=== PATIENT | female | born 1945 | race Caucasian/White ===

== ENCOUNTER → 2020-02-10 09:01 | Outpatient (BNVA) | payer MEDICARE, MEDICAID, SELFPAY | PROVIDERS: PCP Internal Medicine; Referring Provider Internal Medicine; Visit Provider Internal Medicine | DX: I51.81 Takotsubo syndrome (principal); I51.89 Other ill-defined heart diseases; R00.1 Bradycardia, unspecified; Z79.899 Other long term (current) drug therapy; I25.2 Old myocardial infarction | CPT/HCPCS: 93005; 99212 ==

== ENCOUNTER 2020-04-22 16:50 | Outpatient (REF) | payer MEDICARE, MEDICAID, SELFPAY ==
--- NOTE | 2020-04-22 16:55 | XR_ITS ---
EXAMINATION: XR KNEE, LEFT CLINICAL INFORMATION: Pain in left knee COMPARISON: 01/26/2019 TECHNIQUE: Four views of the left knee. FINDINGS: No fracture or dislocation. No joint effusion. Moderate medial compartment joint space narrowing and medial marginal osteophytosis. There is superior and inferior patellar osteophytosis. XR/XR knee LT 4V IMPRESSION: Medial and patellofemoral compartment degenerative arthrosis. The findings have progressed from the prior study in 2019. No acute osseous abnormality.
== END 2020-04-22 16:51 | disposition home or self-care (01) ==
LOC: HO.HMGCX 16:50
PROVIDERS: Visit Provider Nurse Practitioner Family
DX: M25.562 Pain in left knee (principal)
CPT/HCPCS: 73564

== ENCOUNTER 2020-06-01 10:52 | Outpatient (REF) | payer MEDICARE, MEDICAID, SELFPAY ==
--- NOTE | ~2020-06-01 | MM_ITS ---
EXAMINATION: MM SCREENING DIGITAL BREAST TOMOSYNTHESIS, BILATERAL CLINICAL INFORMATION: Screening. Asymptomatic. The lifetime risk of breast cancer based on the Tyrer-Cuzick Model is 6%. COMPARISON: Mammography: 05/27/2019, 02/06/2018 TECHNIQUE: Digital breast tomosynthesis is performed in both the craniocaudal and mediolateral oblique views along with computer-aided detection (CAD). Synthesized 2D images are generated from the tomosynthesis. Additional left CC view is provided. FINDINGS: There are scattered areas of fibroglandular density (ACR BI-RADS breast composition Category b). Parenchymal pattern is similar to prior exams. Scattered fibroglandular asymmetries are stable. There is no developing density. No interval mass or architectural abnormality or abnormal calcifications. The axilla are unremarkable. MM/MM tomosynthesis screening BI IMPRESSION: No significant changes from prior exams. ASSESSMENT: BI-RADS 2: Benign RECOMMENDATION: Routine annual mammography screening. This patient's information was entered into a reminder system with a target due date for their next mammogram.
== END 2020-06-01 10:53 | disposition home or self-care (01) ==
LOC: HO.MAMMO 10:52
PROVIDERS: PCP Internal Medicine; Visit Provider Internal Medicine
DX: Z12.31 Encounter for screening mammogram for malignant neoplasm of breast (principal)
CPT/HCPCS: 77063; 77067

== ENCOUNTER 2020-06-09 08:04 | Outpatient (REF) | payer MEDICARE, MEDICAID, SELFPAY ==
--- NOTE | ~2020-06-09 | MM_ITS ---
EXAMINATION: BONE DENSITOMETRY CLINICAL INDICATION: Asymptomatic menopausal state. COMPARISON: Previous BD dated 02/06/2018 and baseline BD dated 01/13/2011. TECHNIQUE: Using a [employer] DXA System (software version: 13.1) manufactured by [employer], dual-energy x-ray absorptiometry was performed of the lumbar spine and left hip. The images are of good technical quality. Summary results are attached. FINDINGS: AP SPINE L1-L4: Current: BMD 1.159 g/cm2, Z-score 0.6, T-score -0.2, normal, 2.3% increase from previous, 6.8% increase from baseline (<5% change is not significant). Prior: BMD 1.133 g/cm2. Baseline: BMD 1.085 g/cm2. LEFT FEMUR, NECK: Current: BMD 0.716 g/cm2, Z-score -1.1, T-score -2.3, osteopenia. Prior: BMD 0.812 g/cm2. Baseline: BMD 0.817 g/cm2. LEFT FEMUR, TOTAL: Current: BMD 0.804 g/cm2, Z-score -0.7, T-score -1.6, osteopenia, 1.5% decrease from previous, 8.4% decrease from baseline (<5% change is not significant). Prior: BMD 0.816 g/cm2. Baseline: BMD 0.878 g/cm2. IDENTIFIED RISK FACTORS: Height loss, history of fracture (adult), menopause. HISTORY OF FRACTURE: Lower extremity, trauma. MEDICATIONS: None listed. MM/XR DEXA axial skeleton IMPRESSION: 1. DIAGNOSIS: Osteopenia based on the lowest T-score value of -2.3 in the femoral neck applying World Health Organization criteria. 2. 10-YEAR FRACTURE RISK PREDICTION, FRAX: Major osteoporotic fracture (clinical spine, forearm, hip or shoulder) 20.4%. Hip fracture 4.9%. 3. Treatment Recommendations: NOF guidelines recommend consideration for treatment in postmenopausal women and men age 50 and older presenting with the following: -A hip or vertebral (clinical or morphometric) fracture. -T-score less than or equal to -2.5 at the femoral neck or spine after appropriate evaluation to exclude secondary causes. -Low bone mass at the hip or spine and a 10-year fracture probability by FRAX of greater than or equal to 3% for hip fracture or greater than or equal to 20% for major osteoporotic fracture based on the [place] adapted WHO algorithm. 4. Other Recommendations: All treatment decisions require clinical judgment and consideration of individual patient factors, including patient preferences, comorbidities, previous drug use, risk factors not captured in the FRAX model (e.g. frailty, falls, vitamin D deficiency, increased bone turnover, interval significant decline in bone density) and possible under or overestimation of fracture risk by FRAX. Additional medical evaluation for secondary cause of low bone mineral density may be appropriate. FUTURE SCAN RECOMMENDATION: People with diagnosed cases of osteoporosis or at high risk for fracture should have regular bone mineral density tests. For patients eligible for Medicare, routine testing is allowed once every 2 years. The testing frequency can be increased to one year for patients who have rapidly progressing disease, those who are receiving or discontinuing medical therapy to restore bone mass, or have additional risk factors.
== END 2020-06-09 08:05 | disposition home or self-care (01) ==
LOC: HO.MAMMO 08:04
PROVIDERS: Visit Provider Internal Medicine
DX: Z13.89 Encounter for screening for other disorder (principal)
CPT/HCPCS: 77080

== ENCOUNTER 2020-06-09 09:15 | Outpatient (REF) | payer MEDICARE, MEDICAID, SELFPAY ==
[2020-06-09 11:55] LABS: Alanine Aminotransferase 10 U/L (0-31); Albumin Level 3.9 g/dL (3.5-5.0); Alkaline Phosphatase 84 U/L (39-117); Anion Gap 11 (12-20); Aspartate Amino Transferase 12 U/L (5-31); Bilirubin Direct 0.7 mg/dL (0.0-0.5); Bilirubin Total 1.8 mg/dL (0.0-1.0); Blood Urea Nitrogen 22 mg/dL (9-16); Calcium 8.9 mg/dL (8.4-10.2); Carbon Dioxide 27 mmol/L (22-29); Chloride 107 mmol/L (96-108); Estimated Glomerular Filt Rate > 60; Glucose Random 83 mg/dL (60-115); Potassium 4.3 mmol/L (3.3-5.1); Sodium 141 mmol/L (135-145); Total Protein 6.8 g/dL (6.5-8.0)
== END 2020-06-09 09:16 | disposition home or self-care (01) ==
LOC: HO.HMGCLDS 09:15
PROVIDERS: PCP Internal Medicine; Visit Provider Internal Medicine
DX: Z13.820 Encounter for screening for osteoporosis (principal); Z78.0 Asymptomatic menopausal state; R17 Unspecified jaundice; I10 Essential (primary) hypertension; E78.9 Disorder of lipoprotein metabolism, unspecified
CPT/HCPCS: 36415; 77080; 80048; 80076

== ENCOUNTER 2021-02-10 06:02 | Outpatient (REF) | payer MEDICARE, MEDICAID, SELFPAY ==
[2021-02-10 11:33] LABS: Basophils Absolute Auto 0.1 X10*3/uL (0.0-0.2); Basophils Percent Auto 0.9 % (0-2); MANUAL DIFF FLAG SCAN; Mean Corpuscular HGB Conc 32.1 g/dl (31.0-35.0); SCAN SMEAR FLAG 1
[2021-02-10 11:35] LABS: Eosinophils Absolute Auto 0.2 X10*3/uL (0.0-0.4); Eosinophils Percent Auto 2.2 % (0-4); Hematocrit 39.2 % (37.0-47.0); Hemoglobin 12.6 g/dl (12.0-16.0); Imm Gran Abs Auto 0.02 X10*3/uL (0.00-0.03); Imm Gran Pct Auto 0.3 % (0.0-0.4); Lymphocytes Absolute Auto 2.1 X10*3/uL (1.2-4.9); Lymphocytes Percent Auto 27.3 % (20-40); Mean Corpuscular Hemoglobin 30.3 pg (27.0-33.0); Mean Corpuscular Volume 94.2 fL (80.0-98.0); Mean Platelet Volume 13.6 fL (9.4-12.3); Monocytes Absolute Auto 0.5 X10*3/uL (0.1-1.2); Monocytes Percent Auto 7.1 % (2-11); Neutrophils Absolute Auto 4.7 x10*3/uL (2.0-8.3); Neutrophils Percent Auto 62.2 % (45-73); Platelet Count 199 X10*3/uL (160-400); Red Blood Count 4.16 X10*6/uL (4.20-5.50); Red Cell Distribution Width 15.2 % (11.0-16.0); White Blood Count 7.6 X10*3/uL (4.8-10.8)
[2021-02-10 11:41] LABS: PLT ABN DIST 1
[2021-02-10 11:54] LABS: SLIDE REVIEW VERIFIED
[2021-02-10 12:16] LABS: Alanine Aminotransferase 10 U/L (0-31); Albumin Level 3.6 g/dL (3.5-5.0); Alkaline Phosphatase 75 U/L (39-117); Anion Gap 11 (12-20); Aspartate Amino Transferase 11 U/L (5-31); Bilirubin Total 1.3 mg/dL (0.0-1.0); Blood Urea Nitrogen 20 mg/dL (9-16); Calcium 8.7 mg/dL (8.4-10.2); Carbon Dioxide 25 mmol/L (22-29); Chloride 109 mmol/L (96-108); Cholesterol 147 mg/dL; Estimated Glomerular Filt Rate > 60; Glucose Fasting 90 mg/dL (60-99); HDL Cholesterol 53 mg/dL; LDL Cholesterol Calculated 79 mg/dl; Potassium 4.2 mmol/L (3.3-5.1); Sodium 141 mmol/L (135-145); Total Protein 6.1 g/dL (6.5-8.0); Triglycerides 76 mg/dL
== END 2021-02-10 06:03 | disposition home or self-care (01) ==
LOC: HO.HMGCLDS 06:02
PROVIDERS: PCP Internal Medicine; Visit Provider Internal Medicine
DX: R10.13 Epigastric pain (principal); E78.9 Disorder of lipoprotein metabolism, unspecified; F41.1 Generalized anxiety disorder; I10 Essential (primary) hypertension
CPT/HCPCS: 36415; 80053; 80061; 85025

== ENCOUNTER → 2021-02-11 09:42 | Outpatient (REF) | payer MEDICARE, MEDICAID, SELFPAY ==
--- NOTE | 2021-02-11 09:46 | CA_ITS ---
Transthoracic Echocardiogram Patient (Last, First, Middle): Flxe Cuevas, Gender: Female Date of : 1945 Age: 75 Procedure Date: 02/11/2021 Procedure Type: Transthoracic Echocardiogram Location: OP Height: 162.56 cm Weight: 88.45 kg BSA: 1.94 m2 Heart Rate: bpm BP: 138 / 80 mmHg Financial Auditor: DSLevy Referring MD: Jey Roy MD Symptoms: I51.81 - Takotsubo syndrome Study Quality: Fair ECG Rhythm: Sinus Conclusions: - The left ventricular systolic function is normal. The calculated ejection fraction is 55% by biplane method. - E/E prime ratio is >15, consistent with elevated filling pressures. Evidence suggests grade I (mild) diastolic dysfunction. - There is mild mitral valve regurgitation. Findings Left Ventricle Normal left ventricular cavity size. There is normal left ventricular wall thickness. The left ventricular systolic function is normal. The calculated ejection fraction is 55% by biplane method. E/E prime ratio is >15, consistent with elevated filling pressures. Evidence suggests grade I (mild) diastolic dysfunction. Right Ventricle Normal right ventricular cavity size and systolic function. Atria Both atria are normal in size. Aortic Valve There is a normal trileaflet aortic valve. There is no aortic valve stenosis. There is trace (trivial) aortic valve regurgitation. Mitral Valve The mitral valve appears normal. There is mild mitral valve regurgitation. There is no mitral valve stenosis. Pulmonic Valve The pulmonic valve was not well visualized. Tricuspid Valve Normal tricuspid valve structure. There is trace tricuspid valve regurgitation. The pulmonary artery systolic pressure is normal. Great Vessels There is mild dilatation of the ascending aorta measuring 3.80 cm. Venous The inferior vena cava is mildly dilated. Pericardium/Pleural There is no evidence of pericardial effusion. Prior Study Comparison No significant change compared to prior study dated: 09/03/2018. Measurements 2D Linear Measurements IVSd: 0.98 0.6-0.9/0.6-1.0 cm LVIDd: 4.64 3.9-5.3/4.2-5.9 cm LVIDd Index: 2.39 2.4-3.2/2.2-3.1 cm/m2 LVIDs: 3.59 2.0-3.6 cm LVPWd: 1.33 0.7-1.1 cm LA Diam: 4.10 2.7-3.8/3.0-4.0 cm LAIDs Index: 2.11 1.5-2.3 cm/m2 LV Mass: 245.54 67-162/88-224 g LV Mass Index: 126.57 43-95/49-115 g/m2 LVOT Diam: 2.30 3.0+(-)1.3 cm 2D Systolic Function EF 4C: 53.70 >55% EF 2C: 53.30 >55% EF BiP: 54.60 >55% Mitral Valve MV Pk E: 1.04 MV PK A: 0.88 MV Decel Time: 235.00 E/A: 1.20 E'Lateral: 6.09 E'Medial: 6.64 E/E' Med: 15.70 E/E' Lat: 17.10 PHT: 69.00 MVA PHT: 3.19 Decel Sioux: 4.42 Aortic Valve AoV Pk Trevor: 1.24 AoV Pk Grad: 6.00 AI Pk Trevor: 3.61 AI Sioux: 1.93 LVOT LVOT Pk Trevor: 0.95 LVOT Mn Trevor: 0.68 LVOT VTI: 0.23 LVOT Pk Grad: 4.00 LVOT Mn Grad: 2.00 LVOT Diam: 2.30 LVOT Area: 4.15 Diastolic Function MV Pk E: 1.04 MV Pk A: 0.88 E/A: 1.20 E'Medial: 6.64 E/E' Med: 15.70 E' Laterial: 6.09 E/E' Lat: 17.10 Right Ventricle TAPSE (mm): 2.26 Tricuspid Valve TR Pk Trevor: 2.24 TR Pk Grad: 20.00 RA Press: 3.00 RVSP: 23.00 Great Vessels Aorta Ao Asc: 3.80 2.1-3.4 cm Updated in Other Vendor System with Status of Final Jey Roy MD electronically signed on 02/12/2021 2:57:52 PM with status of Final
== END ==
LOC: HO.CARD 09:42
PROVIDERS: PCP Internal Medicine; Visit Provider Internal Medicine
DX: I25.10 Atherosclerotic heart disease of native coronary artery without angina pectoris (principal); I51.81 Takotsubo syndrome
CPT/HCPCS: 93306

== ENCOUNTER → 2021-02-15 08:22 | Outpatient (BNVA) | payer MEDICARE, MEDICAID, SELFPAY | PROVIDERS: PCP Internal Medicine; Referring Provider Internal Medicine; Visit Provider Internal Medicine | DX: I51.81 Takotsubo syndrome (principal); I51.89 Other ill-defined heart diseases; I49.3 Ventricular premature depolarization | CPT/HCPCS: 93005; 99212 ==

== ENCOUNTER 2021-07-26 08:07 | Outpatient (REF) | payer MEDICARE, MEDICAID, SELFPAY ==
--- NOTE | ~2021-07-26 | MM_ITS ---
EXAMINATION: MM SCREENING DIGITAL BREAST TOMOSYNTHESIS, BILATERAL CLINICAL INFORMATION: Screening. Asymptomatic. The lifetime risk of breast cancer based on the Tyrer-Cuzick Model is 6%. COMPARISON: Mammography: 06/01/2020, 05/27/2019, 02/06/2018 TECHNIQUE: Digital breast tomosynthesis is performed in both the craniocaudal and mediolateral oblique views along with computer-aided detection (CAD). Synthesized 2D images are generated from the tomosynthesis. FINDINGS: There are scattered areas of fibroglandular density (ACR BI-RADS breast composition Category b). There are no significant masses, abnormal calcifications, or other abnormalities. Parenchymal pattern is similar to prior studies. The axilla and skin contours are unremarkable. MM/MM tomosynthesis screening BI IMPRESSION: No mammographic evidence of malignancy. ASSESSMENT: BI-RADS 1: Negative RECOMMENDATION: Routine annual mammography screening. This patient's information was entered into a reminder system with a target due date for their next mammogram.
== END 2021-07-26 08:08 | disposition home or self-care (01) ==
LOC: HO.MAMMO 08:07
PROVIDERS: PCP Internal Medicine; Visit Provider Internal Medicine
DX: Z12.31 Encounter for screening mammogram for malignant neoplasm of breast (principal)
CPT/HCPCS: 77063; 77067

== ENCOUNTER → 2022-03-21 12:44 | Outpatient (BNVA) | payer MEDICARE, MEDICAID, SELFPAY | PROVIDERS: PCP Internal Medicine; Referring Provider Internal Medicine; Visit Provider Internal Medicine | DX: I51.81 Takotsubo syndrome (principal); I51.89 Other ill-defined heart diseases; I10 Essential (primary) hypertension | CPT/HCPCS: 93005; 99212 ==

== ENCOUNTER 2022-07-13 10:45 | Outpatient (REF) | payer OTHER, MEDICAID, SELFPAY ==
--- NOTE | ~2022-07-13 | XR_ITS ---
EXAMINATION: XR chest 2V, XR ribs RT 2V CLINICAL INFORMATION: Reason for Exam W19.XXXA - Unspecified fall, initial encounter COMPARISON: Chest radiograph 01/26/2019 TECHNIQUE: 3 views of the Right ribs. 2 view of the chest. FINDINGS: Possible subtle minimally displaced right anterior seventh rib fracture. Few streaky left basilar airspace opacities favoring atelectasis. No pneumothorax. Trace bilateral pleural effusions. Unchanged cardiomediastinal silhouette. XR/XR chest 2V IMPRESSION: 1. Possible subtle minimally displaced right anterior seventh rib fracture. No pneumothorax. 2. Trace bilateral pleural effusions. 3. Few streaky left basilar airspace opacities favoring atelectasis.
--- NOTE | ~2022-07-13 | XR_ITS ---
EXAMINATION: XR chest 2V, XR ribs RT 2V CLINICAL INFORMATION: Reason for Exam W19.XXXA - Unspecified fall, initial encounter COMPARISON: Chest radiograph 01/26/2019 TECHNIQUE: 3 views of the Right ribs. 2 view of the chest. FINDINGS: Possible subtle minimally displaced right anterior seventh rib fracture. Few streaky left basilar airspace opacities favoring atelectasis. No pneumothorax. Trace bilateral pleural effusions. Unchanged cardiomediastinal silhouette. XR/XR ribs RT 2V IMPRESSION: 1. Possible subtle minimally displaced right anterior seventh rib fracture. No pneumothorax. 2. Trace bilateral pleural effusions. 3. Few streaky left basilar airspace opacities favoring atelectasis.
== END 2022-07-13 10:46 | disposition home or self-care (01) ==
LOC: HO.HMGCX 10:45
PROVIDERS: PCP Internal Medicine; Visit Provider Internal Medicine
DX: R07.81 Pleurodynia (principal); Z91.81 History of falling
CPT/HCPCS: 71046; 71100

== ENCOUNTER 2022-08-01 08:05 | Outpatient (REF) | payer OTHER, MEDICAID, SELFPAY ==
--- NOTE | ~2022-08-01 | MM_ITS ---
EXAMINATION: MM SCREENING DIGITAL BREAST TOMOSYNTHESIS, BILATERAL CLINICAL INFORMATION: Screening. Asymptomatic. The lifetime risk of breast cancer based on the Tyrer-Cuzick Model is 6%. COMPARISON: Mammography: 07/26/2021, 06/01/2020, 05/27/2019, 02/06/2018, 01/05/2017 TECHNIQUE: Digital breast tomosynthesis is performed in both the craniocaudal and mediolateral oblique views along with computer-aided detection (CAD). Synthesized 2D images are generated from the tomosynthesis. FINDINGS: There are scattered areas of fibroglandular density (ACR BI-RADS breast composition Category b). There are no significant masses, abnormal calcifications, or other abnormalities. No architectural abnormality or developing density or significant change from prior studies. There are some scattered minor asymmetries similar to prior exams. The axilla and skin contours are unremarkable. No significant changes. MM/MM tomosynthesis screening BI IMPRESSION: No mammographic evidence of malignancy. ASSESSMENT: BI-RADS 2: Benign RECOMMENDATION: Routine annual mammography screening. This patient's information was entered into a reminder system with a target due date for their next mammogram.
== END 2022-08-01 08:06 | disposition home or self-care (01) ==
LOC: HO.MAMMO 08:05
PROVIDERS: PCP Internal Medicine; Visit Provider Internal Medicine
DX: Z12.31 Encounter for screening mammogram for malignant neoplasm of breast (principal)
CPT/HCPCS: 77063; 77067

== ENCOUNTER 2023-04-10 08:34 | Outpatient (AMB) | payer OTHER, MEDICAID, SELFPAY ==
[2023-04-10 08:48] VITALS: BP 132/80; PULSE 59; BMI 35.3
--- NOTE | 2023-04-10 08:48 | MHC.OFFVIS ---
Intake Vital Signs 04/10/23 08:48 Height 5 ft 2 in Weight 193 lb 1.999 oz BMI 35.3 BP 132/80 Blood Pressure Location Lt brachial Position Sitting Pulse 59 Pulse Source Monitor Intake Visit Reasons: f/u Special Agent Required: No Traffic Observer: Traffic Observer Present Accompanied by: Daughter Allergies lisinopril [LISINOPRIL] Allergy (Unknown, Verified 04/10/23 08:51) Cough Sulfa (Sulfonamide Antibiotics) Allergy (Unknown, Verified 04/10/23 08:51) Unknown propoxyphene [From Darvocet-N] Allergy (Verified 04/10/23 08:51) tachycardia cephalexin [Keflex] Adverse Reaction (Unknown, Verified 04/10/23 08:51) Nausea and Vomiting Medication List - Last Reconciled 04/10/23 by SHANTANU NassarC aspirin 81 mg PO DAILY atorvastatin 20 mg PO DAILY carvedilol 6.25 mg PO BID losartan 25 mg PO DAILY omeprazole 20 mg PO BID HPI f/u HPI Details Flex is a 77-year-old female past medical history of hypertension, hyperlipidemia, stress-induced cardiomyopathy who presents for follow-up. Today she reports she has been doing well since her last visit here on 03/21/2022. She denies any concerning symptoms. No chest discomfort at rest or with activity, no shortness of breath, palpitations, presyncope, syncope, PND, orthopnea or edema. 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 She does have issues with bilateral knee discomfort. She takes all her meds as directed. Her daughter is present. ON LICENSE OF [facility] Medical History Sinus bradycardia Diastolic dysfunction Stress-induced cardiomyopathy Dyspepsia Hypertension, essential Lipid disorder Angina pectoris Varicose veins of anus or rectum Ankle fracture, right Upper GI bleed Surgical History History of cardiac catheterization (~01/2015) Displaced comminuted fracture of shaft of right tibia, subsequent encounter for open fracture type IIIA, IIIB, or IIIC with routine healing (2009) Hx of arthroscopy of right knee (2009) Family History Father Diabetes HTN (hypertension) Mother Diabetes HTN (hypertension) Unknown Diabetes HTN (hypertension) Brother Lymphoma Social History Patient Tobacco Use Status: Never used Tobacco Review of Systems Const All systems reviewed & are unremarkable except as noted in HPI and below ENT Denies dizziness Card Denies chest pain, Denies chest pain at rest, Denies chest pain with activity, Denies rapid heart rate, Denies pedal edema, Denies edema, Denies leg edema, Denies lightheadedness, Denies palpitations, Denies dyspnea, Denies dyspnea on exertion and Denies orthopnea Resp Denies cough, Denies dyspnea and Denies dyspnea on exertion GI Denies hematochezia and Denies change in stool character Musc Denies abnormal gait, Denies limited range of motion, Denies muscle cramps, Denies muscle weakness, Denies numbness, Denies radiating pain into limb, Denies stiffness and Denies tingling Neuro Denies abnormal gait, Denies dizziness, Denies numbness and Denies tingling Endo Denies palpitations Physical Exam Vital Signs: Last Vital Signs BP 132/80 04/10/23 08:48 BMI result Body Mass Index 35.3 Const General: cooperative, healthy appearing, comfortable and no acute distress Orientation/consciousness: patient oriented x3 Neck Neck: Yes normal visual inspection Resp Effort & Inspection: normal respiratory effort Auscultation: clear to auscultation bilaterally, no crackles, no rales, no rhonchi and no wheezes Cardio Jugular venous distension: no JVD Rate: regular rate Rhythm: regular rhythm Heart sounds: S1 normal heart sound present, S2 normal heart sound present, no murmurs and no rubs Skin General skin exam: no rashes or lesions noted Neuro General: patient oriented x3 Extrem General: Yes normal to inspection and No no pedal edema Psych Appearance: grossly normal Mental Status: mental status grossly normal Speech and movement: Normal speech and movement present Office Procedures EKG Details: Today, read by me, sinus bradycardia with PACs, left axis deviation, LVH with QRS widening, QTC 441 millisecond, rate 59 [id number], Complete Assessment & Plan Assessment & Plan (1) Stress-induced cardiomyopathy: Code(s): I51.81 - Takotsubo syndrome Plan: History of stress-induced cardiomyopathy. She has been maintained on carvedilol and losartan for neurohormonal modulation. Prior cardiac catheterization 2014 showed no significant CAD. Last echocardiogram done 02/11/2021 showed EF 55%, grade 1 diastolic dysfunction, mild MR, echo was no change from 06/2018. She has no clinical signs of heart failure on examination. No reports of anginal sounding symptoms. Continue on current meds without change. Will send refills for her carvedilol, losartan and atorvastatin. Will update lab work, orders placed. Will check echo prior to her next visit in 1 year. Cardiology follow-up in 1 year, sooner if needed. (2) Hypertension, essential: Code(s): I10 - Essential (primary) hypertension Plan: Well controlled at present time. No med changes made Plan Time spent on chart review, documentation, interview and assessment Orders: Orders Lipid Panel Today E78.9 - Disorder of lipoprotein metabolism, unspecified CA echo transthoracic complete 50 Weeks I51.81 - Takotsubo syndrome Complete Blood Count Auto Diff Today I51.81 - Takotsubo syndrome, K21.9 - Gastro-esophageal reflux disease without esophagitis Comprehensive Met. Panel Today I10 - Essential (primary) hypertension, I51.81 - Takotsubo syndrome Medications: Refilled atorvastatin 20 mg PO DAILY 90 tabs 3RF carvedilol 6.25 mg PO BID 180 tabs 3RF I51.81 - Takotsubo syndrome losartan 25 mg PO DAILY 90 tabs 3RF I51.81 - Takotsubo syndrome Coding Level of Care Code Est Pt Level 3 (79330) Diagnoses Stress-induced cardiomyopathy I51.81 Hypertension, essential I10 CPT Codes EKG - CPT: 35020-Ydiwarprhbzsitipi, Complete ([id number]) Time Spent (min) 24
== END 2023-04-10 09:15 | disposition home or self-care (01) ==
PROVIDERS: PCP Internal Medicine; Visit Provider Nurse Practitioner Family
DX: I51.81 Takotsubo syndrome (principal); I10 Essential (primary) hypertension
CPT/HCPCS: 93010; 99213

== ENCOUNTER → 2023-04-10 08:34 | Outpatient (BNVA) | payer OTHER, MEDICAID, SELFPAY | PROVIDERS: PCP Internal Medicine; Visit Provider Nurse Practitioner Family | DX: I51.81 Takotsubo syndrome (principal); I10 Essential (primary) hypertension | CPT/HCPCS: 93005; 99212 ==

== ENCOUNTER 2023-04-21 07:29 | Outpatient (REF) | payer OTHER, SELFPAY ==
[2023-04-21 11:40] LABS: MANUAL DIFF FLAG NO
[2023-04-21 11:58] LABS: Basophils Absolute Auto 0.1 X10*3/uL (0.0-0.2); Basophils Percent Auto 1.6 % (0-2); Eosinophils Absolute Auto 0.1 X10*3/uL (0.0-0.4); Eosinophils Percent Auto 2.4 % (0-4); Hematocrit 43.7 % (37.0-47.0); Hemoglobin 14.2 g/dl (12.0-16.0); Imm Gran Abs Auto 0.01 X10*3/uL (0.00-0.03); Imm Gran Pct Auto 0.2 % (0.0-0.4); Lymphocytes Percent Auto 35.4 % (20-40); Mean Corpuscular HGB Conc 32.5 g/dl (31.0-35.0); Mean Corpuscular Hemoglobin 29.8 pg (27.0-33.0); Mean Corpuscular Volume 91.6 fL (80.0-98.0); Mean Platelet Volume 13.3 fL (9.4-12.3); Monocytes Absolute Auto 0.4 X10*3/uL (0.1-1.2); Monocytes Percent Auto 7.6 % (2-11); Neutrophils Absolute Auto 3.1 x10*3/uL (2.0-8.3); Neutrophils Percent Auto 52.8 % (45-73); Platelet Count 220 X10*3/uL (160-400); Red Blood Count 4.77 X10*6/uL (4.20-5.50); Red Cell Distribution Width 12.8 % (11.0-16.0); White Blood Count 5.8 X10*3/uL (4.8-10.8)
[2023-04-21 12:19] LABS: Alanine Aminotransferase 9 U/L (0-31); Albumin Level 3.8 g/dL (3.5-5.0); Alkaline Phosphatase 83 U/L (39-117); Anion Gap 11 (12-20); Aspartate Amino Transferase 14 U/L (5-31); Bilirubin Total 1.7 mg/dL (0.0-1.0); Blood Urea Nitrogen 13 mg/dL (9-16); Calcium 9.2 mg/dL (8.4-10.2); Carbon Dioxide 25 mmol/L (22-29); Chloride 109 mmol/L (96-108); Cholesterol 147 mg/dL (<200); Estimated Glomerular Filt Rate > 60; Glucose Random 94 mg/dL (60-115); HDL Cholesterol 59 mg/dL (>40); LDL Cholesterol Calculated 73 mg/dL (<100); Potassium 3.6 mmol/L (3.3-5.1); Sodium 141 mmol/L (135-145); Triglycerides 79 mg/dL (<150)
== END 2023-04-21 07:30 | disposition home or self-care (01) ==
LOC: HO.HMGCLDS 07:29
PROVIDERS: PCP Internal Medicine; Visit Provider Nurse Practitioner Family
DX: E78.9 Disorder of lipoprotein metabolism, unspecified (principal); I51.81 Takotsubo syndrome; I10 Essential (primary) hypertension; K21.9 Gastro-esophageal reflux disease without esophagitis
CPT/HCPCS: 36415; 80053; 80061; 85025

== ENCOUNTER 2023-06-01 12:39 | Outpatient (AMB) | payer OTHER, SELFPAY ==
[2023-06-01 13:23] VITALS: BP 140/82; PULSE 66; TEMP 36.6; O2SAT 99; BMI 35.3
--- NOTE | 2023-06-01 13:23 | AM.OFFWIN_ITS ---
Intake Vital Signs 06/01/23 13:23 Height 5 ft 2 in Weight 193 lb BMI 35.3 BP 140/82 H Blood Pressure Location Lt brachial Position Sitting Pulse 66 Pulse Source Pulse Oximeter Temp 97.9 F Temp Source Oral Pulse Oximetry (%) 99 Oxygen Delivery Method Room Air Intake Visit Reasons: EP sciatica [id number] Intake Note: pt ia here for sciatica serve pain, for 1 week Patient Tobacco Use Status: Never used Tobacco Allergies lisinopril [LISINOPRIL] Allergy (Unknown, Verified 06/01/23 13:24) Cough Sulfa (Sulfonamide Antibiotics) Allergy (Unknown, Verified 06/01/23 13:24) Unknown propoxyphene [From Darvocet-N] Allergy (Verified 06/01/23 13:24) tachycardia cephalexin [Keflex] Adverse Reaction (Unknown, Verified 06/01/23 13:24) Nausea and Vomiting Do you need a note to return to daycare/school/sports/work: No HPI HPI Comments History of Present Illness Details 77 y/o female patient who presents to al ana in clinic with c/o left sided Sciatica nerve x 1 week. Pt describes the pain as sharp radiating down to her foot. Pain is aggravated by walking or standing. Pt has h/o Bilateral knees Osteoarthritis and has an appointment with [facility] Orthopedics. [facility] Medical History Sinus bradycardia Diastolic dysfunction Stress-induced cardiomyopathy Dyspepsia Hypertension, essential Lipid disorder Angina pectoris Varicose veins of anus or rectum Ankle fracture, right Upper GI bleed Surgical History History of cardiac catheterization (~01/2015) Displaced comminuted fracture of shaft of right tibia, subsequent encounter for open fracture type IIIA, IIIB, or IIIC with routine healing (2009) Hx of arthroscopy of right knee (2009) Family History Father Diabetes HTN (hypertension) Mother Diabetes HTN (hypertension) Unknown Diabetes HTN (hypertension) Brother Lymphoma Social History Patient Tobacco Use Status: Never used Tobacco Review of Systems Const All systems reviewed & are unremarkable except as noted in HPI and below Physical Exam Vital Signs: Last Vital Signs Temp 97.9 F 06/01/23 13:23 Pulse 66 06/01/23 13:23 BP 140/82 H 06/01/23 13:23 Pulse Ox 99 06/01/23 13:23 Oxygen Delivery Method Room Air 06/01/23 13:23 BMI result Body Mass Index 35.3 Const General: no acute distress; No comfortable Orientation/consciousness: patient oriented x3 General: Yes no CVA tenderness Back/Spine/Pelvis Back: no CVA tenderness Thoracic/Lumbar Spine: lumbar spinal tenderness (lumbar spasm) at L5 Pelvis: sciatic notch tenderness Neuro General: patient oriented x3 and gait normal Motor exam (neuro): 5/5 motor strength present throughout Assessment & Plan Assessment & Plan (1) Left sciatic nerve pain: Code(s): M54.32 - Sciatica, left side Plan: - F/U with PCP - F/U with Ortho - Take medicine as directed. Medications: New prednisone 20 mg PO DAILY 5 days 5 tabs 0RF M54.32 - Sciatica, left side lidocaine 4% 1 patch topical BID PRN 30 ea 0RF pain M54.32 - Sciatica, left side ibuprofen 600 mg PO Q6H PRN 20 tabs 0RF pain M54.32 - Sciatica, left side cyclobenzaprine 5 mg PO BEDTIME 10 tabs 0RF M54.32 - Sciatica, left side Coding Level of Care Code Est Pt Level 3 (30623) Diagnoses Left sciatic nerve pain M54.32 Time Spent (min) 15
== END 2023-06-01 14:50 | disposition home or self-care (01) ==
PROVIDERS: PCP Internal Medicine; Visit Provider Nurse Practitioner Family
DX: M54.32 Sciatica, left side (principal)
CPT/HCPCS: 99213

== ENCOUNTER 2023-08-03 07:36 | Outpatient (REF) | payer OTHER, SELFPAY ==
--- NOTE | ~2023-08-03 | MM_ITS ---
EXAMINATION: MM SCREENING DIGITAL BREAST TOMOSYNTHESIS, BILATERAL CLINICAL INFORMATION: Screening. Asymptomatic. COMPARISON: Mammography: 07/26/2021, 06/01/2020, 05/27/2019, 02/06/2018, 01/05/2017. TECHNIQUE: Digital breast tomosynthesis is performed in both the craniocaudal and mediolateral oblique views along with computer-aided detection (CAD). Synthesized 2D images are generated from the tomosynthesis. Added bilateral MLO views were provided. FINDINGS: There are scattered areas of fibroglandular density (ACR BI-RADS breast composition Category b). There are bilateral vascular calcifications. There are a few scattered benign type calcifications. There are no suspicious masses, suspicious grouped calcifications, or areas of architectural distortion in either breast. The parenchymal pattern is stable from prior exams. No axillary or skin abnormalities. MM/MM tomosynthesis screening BI IMPRESSION: No mammographic evidence of malignancy. ASSESSMENT: BI-RADS BI-RADS 2 - Benign Findings RECOMMENDATION: Routine annual mammography screening. 1 year F/U This examination should not preclude the clinical evaluation of a suspicious palpable abnormality. This patient's information was entered into a reminder system with a target due date for their next mammogram.
== END 2023-08-03 07:37 | disposition home or self-care (01) ==
LOC: HO.MAMMO 07:36
PROVIDERS: Visit Provider Internal Medicine
DX: Z12.31 Encounter for screening mammogram for malignant neoplasm of breast (principal)
CPT/HCPCS: 77063; 77067

== ENCOUNTER → 2023-08-03 07:45 | Outpatient (BNV) | payer OTHER, SELFPAY | PROVIDERS: Visit Provider Radiology Diagnostic Radiology | DX: Z12.31 Encounter for screening mammogram for malignant neoplasm of breast (principal) | CPT/HCPCS: 77063; 77067 ==

== ENCOUNTER 2023-10-25 08:33 | Outpatient (AMB) | payer OTHER, SELFPAY ==
[2023-10-25 08:34] VITALS: BP 136/78; PULSE 52; O2SAT 98; BMI 34.4
--- NOTE | 2023-10-25 08:34 | MHC.PC.OV ---
Vital Signs 10/25/23 08:34 Height 5 ft 2 in Weight 188 lb 4 oz BMI 34.4 BP 136/78 Blood Pressure Location Rt brachial Position Sitting Pulse 52 Pulse Source Pulse Oximeter Pulse Oximetry (%) 98 Oxygen Delivery Method Room Air Intake Visit Reasons: Annual PE Allergies lisinopril [LISINOPRIL] Allergy (Unknown, Verified 10/25/23 08:39) Cough Sulfa (Sulfonamide Antibiotics) Allergy (Unknown, Verified 10/25/23 08:39) Unknown propoxyphene [From Darvocet-N] Allergy (Verified 10/25/23 08:39) tachycardia cephalexin [Keflex] Adverse Reaction (Unknown, Verified 10/25/23 08:39) Nausea and Vomiting Medication List - Last Reconciled 10/25/23 by Jesus Alberto Piedra MD aspirin 81 mg PO DAILY atorvastatin 20 mg PO DAILY carvedilol 6.25 mg PO BID losartan 25 mg PO DAILY omeprazole 20 mg PO BID Tobacco use date assessed: 10/25/23 Fall risk assessment: No Falls in past year Last assessed Fall Risk: 10/25/23 Dental Screening Dental Screen Date: 10/25/23 Did you have a dental visit in the last 12 months?: Yes Did you have a dental problem in the last 6 months where you did not have access to dental care?: No Was dental information given to patient?: Patient has dentist HPI Annual PE HPI Details Physical exam appointment Mammogram is up-to-date patient declined to do colonoscopy Labs were done April of this year through Cardiology No medication from PCP office Patient me to check her right ear which feels blocked Patient says that she swims a lot On examination patient have wax in her right ear I would recommend to use Debrox ear drops [id number] Patient is unsteady on her feet because of her knees osteoarthritis But she was able to get on the examination table Breast exam was done there are no labs [facility] Medical History Sinus bradycardia Diastolic dysfunction Stress-induced cardiomyopathy Dyspepsia Hypertension, essential Lipid disorder Angina pectoris Varicose veins of anus or rectum Ankle fracture, right Upper GI bleed Surgical History History of cardiac catheterization (~01/2015) Displaced comminuted fracture of shaft of right tibia, subsequent encounter for open fracture type IIIA, IIIB, or IIIC with routine healing (2010) Hx of arthroscopy of right knee (2010) Family History Father Diabetes HTN (hypertension) Mother Diabetes HTN (hypertension) Unknown Diabetes HTN (hypertension) Brother Lymphoma Social History Housing: House Patient Tobacco Use Status: Never used Tobacco e-Cigarette/Vaping Use: Never Used service: No Current occupational status: employed Cognitive needs: No Hearing needs: No Vision needs: No Questionnaire PHQ-9 Over the last 2 weeks, how often have you been bothered by any of the following problems? 1. Little interest or pleasure in doing things: not at all 2. Feeling down, depressed, or hopeless: not at all 3. Trouble falling or staying asleep, or sleeping too much: not at all 4. Feeling tired or having little energy: not at all 5. Poor appetite or overeating: not at all 6. Feeling bad about yourself - or that you are a failure or have let yourself or your family down: not at all 7. Trouble concentrating on things, such as reading the newspaper or watching television: not at all 8. Moving or speaking so slowly that other people could have noticed. Or the opposite - being so fidgety or restless that you have been moving around a lot more than usual: not at all 9. Thoughts that you would be better off or of hurting yourself in some way: not at all Total score: 0 Depression Screening Interpretation: Negative Depression Screening Done: Yes 20280 - PHQ-9 Billing: Yes Source: Developed by Drs. Chinmay Elizondo, Tabitha Rossi, Tylor Up and colleagues, with an educational arminda from [employer]. Thrive Questionnaire Date Thrive assessed: 10/25/23 I am a: Patient What is your living situation today?: I have a steady place to live Within the past 12 months, did the food you bought not last and you didn't have the money to get more?: Never true Within the past 12 months, did you worry whether your food would run out before you got money to buy more?: Never true Do you have trouble paying for medicines?: No Do you have trouble getting transportation to medical appointments?: No Do you have trouble paying your heating and electricity bill?: No Do you have trouble taking care of your child, family member or friend?: No Do you have trouble with day-to-day activities such as bathing, preparing meals, shopping, managing finances, etc.?: No Are you currently unemployed and looking for a job?: Yes Are you interested in more education?: No Please select the resources that you would like help with: Housing/Halfway Currently or been in a relationship where the following occur: No concerns reported THRIVE Score: 0 AUDIT C Alcohol Use Questionnaire (AUDIT-C) 1. How often do you have a drink containing alcohol?: Never 3. How often do you have six or more drinks on one occasion?: Never Total Score: 0 Score Reviewed/Action Taken: Yes GERMAN-7 AMB Questionnaire GERMAN-7 Date GERMAN - 7 assessed: 10/25/23 Feeling nervous, anxious, or on edge: 0 = Not at all Not being able to stop or control worryin = Not at all Worrying too much about different things: 0 = Not at all Trouble relaxin = Not at all Being so restless that it is hard to sit still: 0 = Not at all Becoming easily annoyed or irritable: 0 = Not at all Feeling afraid as if something awful might happen: 0 = Not at all Total GERMAN-7 score (0-4 normal; 5-9 mild; 10-14 moderate; 15-21 severe): 0 Source: Developed by Drs. Chinmay Elizondo, Tabitha Rossi, Tylor Up and colleagues, with an educational arminda from [employer]. GERMAN-7 Assessment Billing GERMAN-7 Assessment Tool: GERMAN-7 Assessment 73461 Review of Systems Const Denies chills, Denies fever(s) and Denies headache(s) Eyes Denies blurry vision ENT Denies headache(s), Denies nasal discharge, Denies nasal obstruction, Denies odynophagia and Denies sinus pain Card Denies chest pain at rest and Denies chest pain with activity Resp Denies cough and Denies hemoptysis GI Denies diarrhea, Denies odynophagia, Denies vomiting and Denies hematemesis Reports as per HPI Skin/Breast Reports as per HPI Neuro Denies Neuro-related abnormal movements, Denies Abnormal speech present and Denies headache(s) Psych Denies mood swings and Denies paranoia Endo Reports as per HPI Edilberto/Lymph Reports as per HPI Aller/Immun Reports as per HPI Physical exam (Primary Care) Vital Signs: Last Vital Signs Pulse 52 10/25/23 08:34 BP 136/78 10/25/23 08:34 Pulse Ox 98 10/25/23 08:34 Oxygen Delivery Method Room Air 10/25/23 08:34 BMI result Body Mass Index 34.4 Tobacco/Smoking Status: Tobacco use Status Tobacco use date assessed 10/25/23 10/25/23 08:40 Patient Tobacco Use Status Never used Tobacco 10/25/23 08:40 e-Cigarette/Vaping Use Never Used 10/25/23 08:40 PHQ-9: PHQ-9 Score PHQ-9: Total score 0 10/25/23 08:40 Depression Screening Interpretation: Negative Thrive Assessment: Date of Thrive Assessment Date Thrive assessed 10/25/23 10/25/23 08:40 Currently or been in a relationship where the following occur: No concerns reported Const General: cooperative, comfortable and no acute distress Orientation/consciousness: patient oriented x3 HENMT Head: Yes normocephalic and Yes atraumatic Eyes General: appearance normal, both eyes and all related structures Pupils: Equal, round and reactive pupils present EOM: EOMs intact bilaterally Neck Neck: Yes supple and No lymphadenopathy Thyroid: Thyroid normal Lymphatic: no lymphadenopathy noted Chest Breast/axilla palpation: normal palpation of the breasts Resp Effort & Inspection: normal respiratory effort and able to speak in complete sentences Auscultation: clear to auscultation bilaterally Cardio Heart sounds: S1 normal heart sound present and S2 normal heart sound present GI Palpation (GI): Soft to palpation and nontender Auscultation: normal bowel sounds General: Yes no CVA tenderness Back/Spine/Pelvis Back: no CVA tenderness Skin General skin exam: elasticity normal and turgor normal Neuro General: patient oriented x3 Cranial nerves: Yes Equal, round and reactive pupils present Speech: No Abnormal speech present Coordination: Romberg test negative Extrem General: Yes normal exam except as noted and No edema Assessment and Plan Assessment & Plan (1) Encounter for general adult medical examination with abnormal findings: Code(s): Z00.01 - Encounter for general adult medical examination with abnormal findings (2) Excessive cerumen in right ear canal: Code(s): H61.21 - Impacted cerumen, right ear (3) Chronic GERD: Code(s): K21.9 - Gastro-esophageal reflux disease without esophagitis (4) Diastolic dysfunction: Code(s): I51.89 - Other ill-defined heart diseases (5) Hypertension, essential: Code(s): I10 - Essential (primary) hypertension (6) Lipid disorder: Code(s): E78.9 - Disorder of lipoprotein metabolism, unspecified Plan Physical exam appointment Mammogram is up-to-date patient declined to do colonoscopy Labs were done April of this year through Cardiology No medication from PCP office Patient me to check her right ear which feels blocked Patient says that she swims a lot On examination patient have wax in her right ear I would recommend to use Debrox ear drops [id number] Patient is unsteady on her feet because of her knees osteoarthritis But she was able to get on the examination table Breast exam was done there are no labs Patient failed tandem walk Coding Level of Care Code Est Pt Level 3 (50271) Est Pt Prev Care >65y(65225) Diagnoses Encounter for general adult medical examination with abnormal findings Z00.01 Excessive cerumen in right ear canal H61.21 Chronic GERD K21.9 Diastolic dysfunction I51.89 Hypertension, essential I10 Lipid disorder E78.9 Additional Codes GERMAN-7 Assessment Billing - GERMAN-7 Assessment Tool: GERMAN-7 Assessment 64995 ([id number])
== END 2023-10-25 09:02 | disposition home or self-care (01) ==
PROVIDERS: Visit Provider Internal Medicine
DX: Z00.01 Encounter for general adult medical examination with abnormal findings (principal); H61.21 Impacted cerumen, right ear; K21.9 Gastro-esophageal reflux disease without esophagitis; I51.89 Other ill-defined heart diseases; I10 Essential (primary) hypertension; E78.9 Disorder of lipoprotein metabolism, unspecified
CPT/HCPCS: 99213; 99397

== ENCOUNTER 2023-11-18 14:48 | Emergency (ER) | payer OTHER, SELFPAY ==
--- NOTE | ~2023-11-18 | US_ITS ---
EXAMINATION: US VENOUS ULTRASOUND WITH DOPPLER LOWER EXTREMITY, LEFT CLINICAL INFORMATION: Edema COMPARISON: Prior ultrasound 2018 TECHNIQUE: Ultrasound of the deep veins is performed from the hip to the calf with compression sonography and color and pulse Doppler assessment. Spectral analysis with color-flow imaging is performed. FINDINGS: There is normal venous compression and respiratory variation and augmented flow. The visualized common femoral vein, superficial femoral vein, profunda femoral vein, popliteal vein, and the trifurcation region shows no evidence of deep venous thrombosis. There is no significant popliteal fossa cyst. If the patient's symptoms persist, followup ultrasound in 5 days 7 days might be of value to exclude proximal propagation from a non-visualized calf vein. US/US venous duplex LE LT IMPRESSION: No DVT demonstrated in the left lower extremity.
[2023-11-18 14:50] VITALS: BP 120/81; PULSE 71; RESP 18; TEMP 36.6; O2SAT 98; BMI 32.6
--- NOTE | 2023-11-18 15:03 | ED_ITS ---
HPI - Extremity Problem General Chief complaint: Extremity Problem Stated complaint: l leg swelling redness painful Time Seen by Provider: 11/18/23 14:54 Source: patient and family Mode of arrival: ambulatory Limitations: no limitations History of Present Illness ED Provider: Lindsay Roe APRN HPI Narrative: 78-year-old female with a history varicose veins who is on 81 mg of aspirin daily presents to the ER with complaints of left calf pain and swelling for the last few days. She denies any chest pain, shortness of breath, fevers or chills. She does have a daughter who has history of DVTs but has no personal history of DVTs. She denies any recent travel. No injury or trauma to the leg. Related Data Home Medications ?Medication ?Instructions ?Recorded ?Confirmed aspirin 81 mg tablet,delayed 81 mg PO DAILY 04/10/23 10/25/23 release Previous Rx's ?Medication ?Instructions ?Recorded atorvastatin 20 mg tablet 20 mg PO DAILY #90 tabs 04/10/23 carvedilol 6.25 mg tablet 6.25 mg PO BID #180 tabs 04/10/23 losartan 25 mg tablet 25 mg PO DAILY #90 tabs 04/10/23 omeprazole 20 mg capsule,delayed 20 mg PO BID #180 caps 10/04/23 release Allergies Allergy/AdvReac Type Severity Reaction Status Date / Time lisinopril [LISINOPRIL] Allergy Unknown Cough Verified 11/18/23 14:56 Sulfa (Sulfonamide Allergy Unknown Unknown Verified 11/18/23 14:56 Antibiotics) propoxyphene Allergy tachycardia Verified 11/18/23 14:56 [From Darvocet-N] cephalexin [Keflex] AdvReac Unknown Nausea and Verified 11/18/23 14:56 Vomiting Review of Systems 2 Review of Systems: Yes all other systems are reviewed and are negative Constitutional: Constitutional: Reports no additional constitutional complaints, Denies body ache(s), Denies chills, Denies fever(s), Denies headache(s) and Denies weakness Eyes: Eyes: Reports no additional eye complaints and Denies change in vision ENT: Reports system reviewed and no additional complaints, except as documented, Denies dizziness, Denies headache(s), Denies nasal congestion, Denies nasal discharge and Denies neck pain Cardiovascular: Cardiovascular: Reports no additional cardiovascular complaints, Denies chest pain, Reports leg edema and Denies dyspnea Respiratory: Respiratory: Reports no additional respiratory complaints, Denies cough and Denies dyspnea Gastrointestinal: Gastrointestinal: Reports no additional gastrointestinal complaints, Denies abdominal pain, Denies diarrhea, Denies nausea and Denies vomiting Genitourinary: Genitourinary: Reports no additional female genitourinary complaints and Denies urinary incontinence Musculoskeletal: Musculoskeletal: Reports no additional musculoskeletal complaints, Denies back pain, Denies arthralgias, Denies joint swelling, Denies neck pain, Denies numbness and Denies tingling Integumentary/Breasts: Skin/Breast: Reports system reviewed and no additional complaints, except as docu and Denies rash Neurologic: Reports system reviewed and no additional complaints, except as documented, Denies Abnormal speech present, Denies dizziness, Denies headache(s), Denies numbness, Denies tingling and Denies weakness PMFSH Past Medical History Attestation statement: The following information was validated with the patient. Source: old records reviewed and nursing notes reviewed Medical History Sinus bradycardia Diastolic dysfunction Stress-induced cardiomyopathy Dyspepsia Hypertension, essential Lipid disorder Angina pectoris Varicose veins of anus or rectum Ankle fracture, right Upper GI bleed Surgical History History of cardiac catheterization (~01/2015) Displaced comminuted fracture of shaft of right tibia, subsequent encounter for open fracture type IIIA, IIIB, or IIIC with routine healing (2009) Hx of arthroscopy of right knee (2009) Family History Family History Father Diabetes HTN (hypertension) Mother Diabetes HTN (hypertension) Unknown Diabetes HTN (hypertension) Brother Lymphoma Social History Social History Housing: House Patient Tobacco Use Status: Never used Tobacco e-Cigarette/Vaping Use: Never Used Advance Directives: No Advance Directives Information Provided: No Do you have a plan to hurt others: No Plan service: No Current occupational status: employed Cognitive needs: No Hearing needs: No Vision needs: No Physical Exam 2 Vital Signs: Vital Signs: Last Vital Signs Temp 97.9 F 11/18/23 14:50 Pulse 71 11/18/23 14:50 Resp 18 11/18/23 14:50 BP 120/81 11/18/23 14:50 Pulse Ox 98 11/18/23 14:50 O2 Del Method Room Air 11/18/23 14:50 BMI result Body Mass Index 32.6 Const: General: cooperative, healthy appearing, comfortable and no acute distress Orientation/consciousness: patient oriented x3 Limitations: no limitations HEENT: Head: Yes normal to inspection Ears: hearing grossly normal bilaterally General nose exam: Normal external nose present Face and sinus: Yes normal facial exam Mouth: Normal oral and palatal mucosa present Throat: Yes posterior oropharynx normal Eyes: General: appearance normal, both eyes and all related structures P upils: Equal, round and reactive pupils present Neck: Neck: Yes normal visual inspection Chest: Chest palpation & inspection: normal inspection of the chest Resp: Effort & Inspection: normal respiratory effort Auscultation: clear to auscultation bilaterally Cardio: Rate: regular rate Rhythm: regular rhythm Peripheral pulses: P eripheral pulses 2+ throughout GI: Inspection: Yes normal to inspection Palpation (GI): Soft to palpation and nontender Auscultation: normal bowel sounds Back/Spine/Pelvis: Thoracic/Lumbar Spine: thoracic and lumbar spine normal to inspection Skin: General skin exam: no rashes or lesions noted Neuro: General: patient oriented x3, no focal motor deficits and normal sensation to monofilament Cranial nerves: Yes Equal, round and reactive pupils present Cognition (Neuro): normal cognition Speech: No Abnormal speech present Gait exam (Neuro): Normal gait present Motor exam (neuro): 5/5 motor strength present throughout Extrem: Other: There are multiple varicosities to both lower legs. To the left posterior calf there is a more superficial varicosity which is tender to palpation with slight swelling. There are 2+ DP and PT pulses bilaterally. Full range of motion of the lower extremities. No erythema noted Course Course Course Narrative: Ultrasound shows no deep vein thrombosis. Labs are unremarkable. Likely superficial phlebitis. Recommend supportive measures at home. Reviewed worrisome signs and symptoms of when to return to the emergency room. Comfortable plan for discharge home. Medical Decision Making Medical Decision Making MDM Narrative: 78-year-old female with a history varicose veins who is on 81 mg of aspirin daily presents to the ER with complaints of left calf pain and swelling for the last few days.? She denies any chest pain, shortness of breath, fevers or chills.? She does have a daughter who has history of DVTs but has no personal history of DVTs.? She denies any recent travel.? No injury or trauma to the leg. There are multiple varicosities to both lower legs.? To the left posterior calf there is a more superficial varicosity which is tender to palpation with slight swelling.? There are 2+ DP and PT pulses bilaterally.? Full range of motion of the lower extremities.? No erythema noted Will obtain ultrasound, labs Differential Diagnosis Differential Diagnoses: The differential diagnosis associated with the presentation includes DVT, superficial phlebitis Admission/Observation Consideration of admission/observation: Escalation of care including admission/observation considered Lab Data MDM Lab Attestation statement: I reviewed the patient's lab results. 11/18/23 15:37 11/18/23 15:37 Labs: Lab Results 11/18/23 Range/Units 15:37 WBC 8.3 (4.8-10.8) X10*3/uL RBC 4.27 (4.20-5.50) X10*6/uL Hgb 13.4 (12.0-16.0) g/dl Hct 39.7 (37.0-47.0) % MCV 93.0 (80.0-98.0) fL MCH 31.4 (27.0-33.0) pg MCHC 33.8 (31.0-35.0) g/dl RDW 14.4 (11.0-16.0) % Plt Count 245 (160-400) X10*3/uL MPV 11.9 (9.4-12.3) fL Immature Gran % (Auto) 0.5 H (0.0-0.4) % Neut % (Auto) 63.5 (45-73) % Lymph % (Auto) 25.1 (20-40) % [place] % (Auto) 8.1 (2-11) % Eos % (Auto) 2.0 (0-4) % Baso % (Auto) 0.8 (0-2) % Lymph # (Auto) 2.1 (1.2-4.9) X10*3/uL [place] # (Auto) 0.7 (0.1-1.2) X10*3/uL Eos # (Auto) 0.2 (0.0-0.4) X10*3/uL Baso # (Auto) 0.1 (0.0-0.2) X10*3/uL Abs Immat Gran (auto) 0.04 H (0.00-0.03) X10*3/uL Absolute Neuts (auto) 5.3 (2.0-8.3) x10*3/uL Absolute Nucleated RBC 0.000 (0.0-0.012) X10*3/uL Nucleated RBC % (auto) 0.0 (0.0-0.2) /100WBC PT 12.4 (11.1-13.3) SEC INR 1.0 (0.9-1.1) Sodium 141 (135-145) mmol/L Potassium 4.1 (3.3-5.1) mmol/L Chloride 111 H (96-108) mmol/L Carbon Dioxide 20 L (22-29) mmol/L Anion Gap 14 (12-20) BUN 16 (9-16) mg/dL Creatinine 0.83 (0.5-1.4) mg/dL Estim Creat Clear Calc 61.2 Estimated GFR > 60 Random Glucose 128 H (60-115) mg/dL Calcium 9.2 (8.4-10.2) mg/dL Total Bilirubin 1.0 (0.0-1.0) mg/dL Direct Bilirubin 0.4 (0.0-0.5) mg/dL AST 12 (5-31) U/L ALT 8 (0-31) U/L Alkaline Phosphatase 79 (39-117) U/L Total Protein 6.5 (6.5-8.0) g/dL Albumin 3.5 (3.5-5.0) g/dL Independent Interpretation I performed an independent interpretation of an: Ultrasound Interpretation: I independently reviewed the ultrasound agree with the radiology report Radiology Impression Discussion of test interpretation with radiology: I have reviewed the radiologist's reading. Radiologist Impression: [address] [address] Ultrasound Report Signed Patient: Flex Cuevas MR#: [id number] : 1945 Acct:[id number] Age/Sex: 78 / F ADM Date: 11/18/23 Loc: HO.ED Attending Dr: Ordering Physician: Lindsay Dugan NP Date of Service: 11/18/23 Procedure(s): US venous duplex LE LT Accession Number(s): [id number] cc: Jesus Alberto Piedra MD; Lindsay Dugan NP~ EXAMINATION: US VENOUS ULTRASOUND WITH DOPPLER LOWER EXTREMITY, LEFT CLINICAL INFORMATION: Edema COMPARISON: Prior ultrasound 2018 TECHNIQUE: Ultrasound of the deep veins is performed from the hip to the calf with compression sonography and color and pulse Doppler assessment. Spectral analysis with color-flow imaging is performed. FINDINGS: There is normal venous compression and respiratory variation and augmented flow. The visualized common femoral vein, superficial femoral vein, profunda femoral vein, popliteal vein, and the trifurcation region shows no evidence of deep venous thrombosis. There is no significant popliteal fossa cyst. If the patient's symptoms persist, followup ultrasound in 5 days 7 days might be of value to exclude proximal propagation from a non-visualized calf vein. US/US venous duplex LE LT IMPRESSION: No DVT demonstrated in the left lower extremity. Independent Historian Clinical information obtained from an independent historian. History obtained from or confirmed by: Other Daughter Discharge Plan Discharge Clinical Impression: Phlebitis Patient Disposition: Home, Self-Care Instructions: Phlebitis (ED) Additional Instructions: You may apply warmth to the area, use the compression bandage for comfort as needed. Take Tylenol for pain. Continue your 81 mg aspirin. Follow-up with your primary care doctor for any continued symptoms. Return for any worsening symptoms Prescriptions: No Action omeprazole 20 mg capsule,delayed release(DR/EC) 20 mg PO BID Qty: 180 3RF aspirin 81 mg tablet,delayed release (DR/EC) 81 mg PO DAILY atorvastatin 20 mg tablet 20 mg PO DAILY Qty: 90 3RF carvedilol 6.25 mg tablet 6.25 mg PO BID Qty: 180 3RF losartan 25 mg tablet 25 mg PO DAILY Qty: 90 3RF Referrals: Jesus Alberto Piedra MD [Primary Care Provider] - 1 week (as needed) Print Language: Libyan
[2023-11-18 15:42] LABS: MANUAL DIFF FLAG NO
--- NOTE | 2023-11-18 15:42 | PC.NURSE ---
patient alert and oriented x4, ambulated with steady gait to room 8. patient noted to have left calf swelling in one of the varicose veins, swollen and warm to the touch, tender to palpation. patient denies any injury/trauma to the area. IV placed in the LAC#20, labs drawn and sent to lab
[2023-11-18 15:43] LABS: Basophils Absolute Auto 0.1 X10*3/uL (0.0-0.2); Basophils Percent Auto 0.8 % (0-2); Eosinophils Absolute Auto 0.2 X10*3/uL (0.0-0.4); Hematocrit 39.7 % (37.0-47.0); Hemoglobin 13.4 g/dl (12.0-16.0); Imm Gran Abs Auto 0.04 X10*3/uL (0.00-0.03); Imm Gran Pct Auto 0.5 % (0.0-0.4); Lymphocytes Absolute Auto 2.1 X10*3/uL (1.2-4.9); Lymphocytes Percent Auto 25.1 % (20-40); Mean Corpuscular HGB Conc 33.8 g/dl (31.0-35.0); Mean Corpuscular Hemoglobin 31.4 pg (27.0-33.0); Mean Platelet Volume 11.9 fL (9.4-12.3); Monocytes Absolute Auto 0.7 X10*3/uL (0.1-1.2); Monocytes Percent Auto 8.1 % (2-11); Neutrophils Absolute Auto 5.3 x10*3/uL (2.0-8.3); Neutrophils Percent Auto 63.5 % (45-73); Platelet Count 245 X10*3/uL (160-400); Red Blood Count 4.27 X10*6/uL (4.20-5.50); Red Cell Distribution Width 14.4 % (11.0-16.0); White Blood Count 8.3 X10*3/uL (4.8-10.8)
[2023-11-18 15:49] LABS: Prothrombin Time 12.4 SEC (11.1-13.3)
[2023-11-18 16:00] LABS: Alanine Aminotransferase 8 U/L (0-31); Albumin Level 3.5 g/dL (3.5-5.0); Alkaline Phosphatase 79 U/L (39-117); Anion Gap 14 (12-20); Aspartate Amino Transferase 12 U/L (5-31); Bilirubin Direct 0.4 mg/dL (0.0-0.5); Blood Urea Nitrogen 16 mg/dL (9-16); Calcium 9.2 mg/dL (8.4-10.2); Carbon Dioxide 20 mmol/L (22-29); Chloride 111 mmol/L (96-108); Creatinine Clr Calc Pharmacy 61.2; Estimated Glomerular Filt Rate > 60; Glucose Random 128 mg/dL (60-115); Potassium 4.1 mmol/L (3.3-5.1); Sodium 141 mmol/L (135-145); Total Protein 6.5 g/dL (6.5-8.0)
[2023-11-18 17:26] VITALS: BP 120/81; PULSE 71; RESP 18; TEMP 36.6; O2SAT 98
== END 2023-11-18 17:26 | disposition home or self-care (01) ==
PROVIDERS: Nurse Practitioner Family; Emergency Provider Emergency Medicine; PCP Internal Medicine
DX: I80.02 Phlebitis and thrombophlebitis of superficial vessels of left lower extremity (principal); M79.662 Pain in left lower leg; I10 Essential (primary) hypertension; E78.5 Hyperlipidemia, unspecified; Z79.82 Long term (current) use of aspirin; Z79.02 Long term (current) use of antithrombotics/antiplatelets; Z79.899 Other long term (current) drug therapy
CPT/HCPCS: 36415; 80048; 80076; 85025; 85610; 93971; 99283; 99284

== ENCOUNTER 2023-11-28 12:14 | Outpatient (AMB) | payer OTHER, SELFPAY ==
[2023-11-28 12:15] VITALS: BP 132/80; PULSE 79; O2SAT 98; BMI 32.5
--- NOTE | 2023-11-28 12:15 | A.OFFPC_ITS ---
Vital Signs 3 11/28/23 12:15 Height 5 ft 4 in Weight 189 lb 6 oz BMI 32.5 BP 132/80 Blood Pressure Location Lt brachial Position Sitting Pulse 79 Pulse Source Pulse Oximeter Pulse Oximetry (%) 98 Oxygen Delivery Method Room Air Intake Visit Reasons: HDF Lt Leg Swelling Allergies lisinopril [LISINOPRIL] Allergy (Unknown, Verified 11/28/23 12:16) Cough Sulfa (Sulfonamide Antibiotics) Allergy (Unknown, Verified 11/28/23 12:16) Unknown propoxyphene [From Darvocet-N] Allergy (Verified 11/28/23 12:16) tachycardia cephalexin [Keflex] Adverse Reaction (Unknown, Verified 11/28/23 12:16) Nausea and Vomiting Medication List - Last Reconciled 11/28/23 by Jesus Alberto Piedra MD aspirin 81 mg PO DAILY atorvastatin 20 mg PO DAILY carvedilol 6.25 mg PO BID losartan 25 mg PO DAILY omeprazole 20 mg PO BID Tobacco use date assessed: 11/28/23 Fall risk assessment: No Falls in past year Last assessed Fall Risk: 11/28/23 Dental Screening Dental Screen Date: 11/28/23 Did you have a dental visit in the last 12 months?: Yes Did you have a dental problem in the last 6 months where you did not have access to dental care?: No Was dental information given to patient?: Patient has dentist HPI HDF Lt Leg Swelling 2 HPI0 Details Patient is 78-year-old female with a history of varicose veins bilateral 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 Patient developed pain back of left leg She was worried about clotting so went to emergency room Ultrasound of leg showed no DVT She said that her pain is better but she is still having pain On examination she was having calf tenderness with pressure However Homans sign is negative Examining posteriorly her leg shows a large area of ecchymosis at the site of pain I believe this is why she was having pain which is already getting better and is now 2/10 in intensity She is taking aspirin she may continue that and Tylenol as needed [facility] Medical History Sinus bradycardia Diastolic dysfunction Stress-induced cardiomyopathy Dyspepsia Hypertension, essential Lipid disorder Angina pectoris Varicose veins of anus or rectum Ankle fracture, right Upper GI bleed Surgical History History of cardiac catheterization (~01/2015) Displaced comminuted fracture of shaft of right tibia, subsequent encounter for open fracture type IIIA, IIIB, or IIIC with routine healing (2009) Hx of arthroscopy of right knee (2009) Family History Father Diabetes HTN (hypertension) Mother Diabetes HTN (hypertension) Unknown Diabetes HTN (hypertension) Brother Lymphoma Social History Housing: House Patient Tobacco Use Status: Never used Tobacco e-Cigarette/Vaping Use: Never Used service: No Current occupational status: employed Cognitive needs: No Hearing needs: No Vision needs: No Questionnaire PHQ-9 Over the last 2 weeks, how often have you been bothered by any of the following problems? 1. Little interest or pleasure in doing things: not at all 2. Feeling down, depressed, or hopeless: not at all 3. Trouble falling or staying asleep, or sleeping too much: not at all 4. Feeling tired or having little energy: not at all 5. Poor appetite or overeating: not at all 6. Feeling bad about yourself - or that you are a failure or have let yourself or your family down: not at all 7. Trouble concentrating on things, such as reading the newspaper or watching television: not at all 8. Moving or speaking so slowly that other people could have noticed. Or the opposite - being so fidgety or restless that you have been moving around a lot more than usual: not at all 9. Thoughts that you would be better off or of hurting yourself in some way: not at all Total score: 0 Depression Screening Interpretation: Negative Depression Screening Done: Yes 86969 - PHQ-9 Billing: Yes Source: Developed by Drs. Chinmay Elizondo, Tabitha Rossi, Tylor Up and colleagues, with an educational arminda from [employer]. Thrive Questionnaire Date Thrive assessed: 11/28/23 I am a: Patient What is your living situation today?: I have a steady place to live Within the past 12 months, did the food you bought not last and you didn't have the money to get more?: Never true Within the past 12 months, did you worry whether your food would run out before you got money to buy more?: Never true Do you have trouble paying for medicines?: No Do you have trouble getting transportation to medical appointments?: No Do you have trouble paying your heating and electricity bill?: No Do you have trouble taking care of your child, family member or friend?: No Do you have trouble with day-to-day activities such as bathing, preparing meals, shopping, managing finances, etc.?: No Are you currently unemployed and looking for a job?: Yes Are you interested in more education?: No Please select the resources that you would like help with: None Currently or been in a relationship where the following occur: No concerns reported THRIVE Score: 0 AUDIT C Alcohol Use Questionnaire (AUDIT-C) 1. How often do you have a drink containing alcohol?: Never 3. How often do you have six or more drinks on one occasion?: Never Total Score: 0 Score Reviewed/Action Taken: Yes GERMAN-7 AMB Questionnaire GERMAN-7 Date GERMAN - 7 assessed: 11/28/23 Feeling nervous, anxious, or on edge: 0 = Not at all Not being able to stop or control worryin = Not at all Worrying too much about different things: 0 = Not at all Trouble relaxin = Not at all Being so restless that it is hard to sit still: 0 = Not at all Becoming easily annoyed or irritable: 0 = Not at all Feeling afraid as if something awful might happen: 0 = Not at all Total GERMAN-7 score (0-4 normal; 5-9 mild; 10-14 moderate; 15-21 severe): 0 Source: Developed by Drs. Chinmay Elizondo, Tabitha Rossi, Tylor Up and colleagues, with an educational arminda from [employer]. GERMAN-7 Assessment Billing GERMAN-7 Assessment Tool: GERMAN-7 Assessment 80352 Review of Systems Const Denies chills and Denies fever(s) ENT Denies epistaxis and Denies nasal discharge Card Denies chest pain Resp Denies chest congestion, Denies cough and Denies hemoptysis GI Denies diarrhea and Denies nausea Skin/Breast Denies rash Neuro Reports no additional complaints Psych Reports no additional complaints Endo Reports no additional complaints Physical exam (Primary Care) Vital Signs: Last Vital Signs Pulse 79 11/28/23 12:15 BP 132/80 11/28/23 12:15 Pulse Ox 98 11/28/23 12:15 Oxygen Delivery Method Room Air 11/28/23 12:15 BMI result Body Mass Index 32.5 Tobacco/Smoking Status: Tobacco use Status Tobacco use date assessed 11/28/23 11/28/23 12:18 Patient Tobacco Use Status Never used Tobacco 11/28/23 12:18 e-Cigarette/Vaping Use Never Used 11/28/23 12:18 PHQ-9: PHQ-9 Score PHQ-9: Total score 0 11/28/23 12:24 Depression Screening Interpretation: Negative Thrive Assessment: Date of Thrive Assessment Date Thrive assessed 11/28/23 11/28/23 12:24 Currently or been in a relationship where the following occur: No concerns reported Const General: cooperative, comfortable and no acute distress Orientation/consciousness: patient oriented x3 HENMT Head: Yes normocephalic Eyes General: appearance normal, both eyes and all related structures Neck Neck: Yes supple Resp Effort & Inspection: normal respiratory effort, no cough and no stridor Cardio Rhythm: regular rhythm Heart sounds: S1 normal heart sound present and S2 normal heart sound present Skin General skin exam: turgor normal Neuro General: patient oriented x3, tone normal and moves all extremities Extrem Right lower extremity: no edema Left lower extremity: no edema Upper/lower leg/hip images: 2 1. 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 Patient developed pain back of left leg She was worried about clotting so went to emergency room Ultrasound of leg showed no DVT She said that her pain is better but she is still having pain On examination she was having calf tenderness with pressure However Homans sign is negative Examining posteriorly her leg shows a large area of ecchymosis at the site of pain I believe this is why she was having pain which is already getting better and is now 2/10 in intensity She is taking aspirin she may continue that and Tylenol as needed Coding Level of Care Code Est Pt Level 3 (51370) Diagnoses Contusion of left lower leg, initial encounter S80.12XA Encounter type: initial encounter Laterality: left Pain in left lower leg M79.662 Additional Codes GERMAN-7 Assessment Billing - GERMAN-7 Assessment Tool: GERMAN-7 Assessment 50023 ([id number])
== END 2023-11-28 13:55 | disposition home or self-care (01) ==
PROVIDERS: PCP Internal Medicine; Visit Provider Internal Medicine
DX: S80.12XA Contusion of left lower leg, initial encounter (principal); M79.662 Pain in left lower leg
CPT/HCPCS: 99213

== ENCOUNTER → 2024-04-01 14:43 | Outpatient (REF) | payer OTHER, SELFPAY ==
--- NOTE | 2024-04-01 14:47 | CA_ITS ---
Transthoracic Echocardiogram Patient (Last, First, Middle): Flex Cuevas, Gender: Female Date of : 1945 Age: 78 Procedure Date: 04/01/2024 Procedure Type: Transthoracic Echocardiogram Location: OP Height: 160.02 cm Weight: 82.56 kg BSA: 1.86 m2 Heart Rate: bpm BP: 130 / 80 mmHg Abstract Searcher: ACOSTA Referring MD: Dolores Milian UNEMPLOYMENT CLAIMS ADJUDICATOR-C Transportation Inspector: Ortega Prakash MD Symptoms: I51.81 - Takotsubo syndrome Study Quality: Fair ECG Rhythm: Sinus with extra beats Conclusions: - 1. Normal LV ejection fraction of 60 65% with impaired relaxation filling pattern 2. Moderately dilated left atrium 3. Mild aortic regurgitation 4. Mildly dilated ascending aorta at 4.1 cm 5. Normal RV systolic pressure 6. No gross pericardial effusion Findings Left Ventricle Normal left ventricular size, thickness, and systolic function. The visually estimated ejection fraction is between 60-65%. Spectral Doppler is indicative of an impaired relaxation filling pattern. E/E prime ratio is between 8 and 15 consistent with indeterminate filling pressures. Peak GLS is -17.4%, borderline low Right Ventricle Normal right ventricular cavity size and systolic function. Atria The left atrium is moderately dilated. There is no evidence of interatrial shunt. The right atrium is likely dilated. Aortic Valve There is mild calcification of the aortic valve. There is no aortic valve stenosis. There is mild aortic valve regurgitation. Mitral Valve There is mild anterior and posterior mitral leaflet thickening. There is mild mitral annular calcification. There is trace mitral valve regurgitation. There is no mitral valve stenosis. Pulmonic Valve The pulmonic valve is likely normal. Tricuspid Valve Normal tricuspid valve structure. There is trace tricuspid valve regurgitation. The right ventricular systolic pressure is normal. The right ventricular systolic pressure is 16 mmHg. Normal right atrial pressure. There is no evidence of pulmonary hypertension. Great Vessels The pulmonary artery was not well visualized. There is mild dilatation of the ascending aorta measuring 4.10 cm. Venous The inferior vena cava is normal in size and collapses greater than 50% with inspiration. Pericardium/Pleural There is no evidence of pericardial effusion. Prior Study Comparison Changes noted compared to prior study dated: 02/11/2021. ascending aorta is mildly dilated. Mild aortic regurgitation is noted Measurements 2D Linear Measurements IVSd: 0.79 0.6-0.9/0.6-1.0 cm LVIDd: 4.81 3.9-5.3/4.2-5.9 cm LVIDd Index: 2.59 2.4-3.2/2.2-3.1 cm/m2 LVIDs: 3.51 2.0-3.6 cm LVPWd: 0.99 0.7-1.1 cm LA Diam: 4.30 2.7-3.8/3.0-4.0 cm LAIDs Index: 2.31 1.5-2.3 cm/m2 LV Mass: 181.36 67-162/88-224 g LV Mass Index: 97.51 43-95/49-115 g/m2 LVOT Diam: 2.30 3.0+(-)1.3 cm 2D Systolic Function EF 4C: 55.50 >55% EF 2C: 70.40 >55% EF BiP: 62.90 >55% Mitral Valve MV Pk E: 0.70 MV PK A: 1.13 MV Decel Time: 386.00 E/A: 0.60 E'Lateral: 7.18 E'Medial: 4.24 E/E' Med: 16.60 E/E' Lat: 9.80 PHT: 113.00 MVA PHT: 1.95 Decel Shannon: 1.82 Aortic Valve AoV Pk Trevor: 1.25 AoV Mn Trevor: 0.82 AoV VTI: 0.31 AoV Pk Grad: 6.00 Aov Mn Grad: 3.00 RJ Cont.VTI: 3.23 LVOT LVOT Pk Trevor: 0.90 LVOT Mn Trevor: 0.60 LVOT VTI: 0.24 LVOT Pk Grad: 3.00 LVOT Mn Grad: 2.00 LVOT Diam: 2.30 LVOT Area: 4.15 Diastolic Function MV Pk E: 0.70 MV Pk A: 1.13 E/A: 0.60 E'Medial: 4.24 E/E' Med: 16.60 E' Laterial: 7.18 E/E' Lat: 9.80 Right Ventricle TAPSE (mm): 26.77 TVS' Trevor: 16.50 Tricuspid Valve TR Pk Trevor: 1.83 TR Pk Grad: 13.00 RA Press: 3.00 RVSP: 16.00 Great Vessels Aorta Sinus of Valsalva: 4.05 2.0-3.[address] Ridge: 3.29 1.7-3.4 cm Ao Asc: 4.10 2.1-3.4 cm Updated in Other Vendor System with Status of Final Ortega Prakash MD electronically signed on 04/02/2024 11:41:09 AM with status of Final
== END ==
LOC: HO.CARD 14:43
PROVIDERS: PCP Internal Medicine; Visit Provider Nurse Practitioner Family
DX: I51.81 Takotsubo syndrome (principal)
CPT/HCPCS: 93306; 93356

== ENCOUNTER → 2024-04-01 14:47 | Outpatient (BNV) | payer OTHER, SELFPAY | PROVIDERS: PCP Internal Medicine; Visit Provider Internal Medicine Cardiovascular Disease | DX: I35.1 Nonrheumatic aortic (valve) insufficiency (principal); I35.8 Other nonrheumatic aortic valve disorders; I34.81 Nonrheumatic mitral (valve) annulus calcification; I51.81 Takotsubo syndrome | CPT/HCPCS: 93306 ==

== ENCOUNTER 2024-04-15 08:53 | Outpatient (AMB) | payer MEDICARE, SELFPAY ==
[2024-04-15 09:01] VITALS: BP 144/82; PULSE 51; BMI 32.6
--- NOTE | 2024-04-15 09:01 | MHC.OFFVIS ---
Vital Signs 04/15/24 09:01 Height 5 ft 4 in Weight 190 lb 0.615 oz BMI 32.6 BP 144/82 H Blood Pressure Location Lt brachial Position Sitting Pulse 51 Intake Visit Reasons: 1 yr f/up DC Hand Cultivator Required: No Accompanied by: Self / Same As Patient Allergies lisinopril [LISINOPRIL] Allergy (Unknown, Verified 11/28/23 12:16) Cough Sulfa (Sulfonamide Antibiotics) Allergy (Unknown, Verified 11/28/23 12:16) Unknown propoxyphene [From Darvocet-N] Allergy (Verified 11/28/23 12:16) tachycardia cephalexin [Keflex] Adverse Reaction (Unknown, Verified 11/28/23 12:16) Nausea and Vomiting Medication List - Last Reconciled 04/15/24 by Jey Roy MD aspirin 81 mg PO DAILY atorvastatin 20 mg PO DAILY carvedilol 6.25 mg PO BID losartan 25 mg PO DAILY omeprazole 20 mg PO BID HPI Comments Details: Flex returns for follow-up regarding stress-induced cardiomyopathy. To recall, she was seen in 2014 with chest and back pain with positive troponins treated as NSTEMI. This led to cardiac catheterization, but did not have any significant coronary disease. Impression was stress-induced cardiomyopathy. Overall, she is feeling good. No new complaints. Blood pressure is slightly high today. [facility] Medical History Sinus bradycardia Diastolic dysfunction Stress-induced cardiomyopathy Dyspepsia Hypertension, essential Lipid disorder Angina pectoris Varicose veins of anus or rectum Ankle fracture, right Upper GI bleed Surgical History History of cardiac catheterization (~01/2015) Displaced comminuted fracture of shaft of right tibia, subsequent encounter for open fracture type IIIA, IIIB, or IIIC with routine healing (2009) Hx of arthroscopy of right knee (2009) Family History Father Diabetes HTN (hypertension) Mother Diabetes HTN (hypertension) Unknown Diabetes HTN (hypertension) Brother Lymphoma Social History (Updated 04/15/24 @ 09:05 by Keke Cheng CMA) Housing: House Alcohol intake: never Patient Tobacco Use Status: Never used Tobacco e-Cigarette/Vaping Use: Never Used service: No Current occupational status: employed Cognitive needs: No Hearing needs: No Vision needs: No Review of Systems Const Denies chills, Denies fatigue, Denies fever(s), Denies weight gain and Denies weight loss ENT Denies dizziness Card Denies chest pain, Denies leg edema, Denies lightheadedness, Denies palpitations, Denies dyspnea on exertion, Denies orthopnea and Denies other Resp Denies cough and Denies dyspnea on exertion GI Denies hematochezia and Denies change in stool character Musc Denies abnormal gait, Denies muscle weakness, Denies numbness, Denies radiating pain into limb and Denies tingling Neuro Denies abnormal gait, Denies dizziness, Denies numbness and Denies tingling Endo Denies fatigue and Denies palpitations Physical Exam Vital Signs: Last Vital Signs Pulse 51 04/15/24 09:01 BP 144/82 H 04/15/24 09:01 BMI result Body Mass Index 32.6 Const General: comfortable and no acute distress Orientation/consciousness: patient oriented x3 HEENT Other: Unremarkable Head: Yes normal to inspection Neck Neck: Yes normal visual inspection Chest Chest palpation & inspection: normal inspection of the chest Resp Auscultation: clear to auscultation bilaterally Cardio Palpation: normal PMI Heart sounds: S1 normal heart sound present, S2 normal heart sound present, no gallops, no murmurs and no rubs GI Palpation (GI): Soft to palpation Back/Spine/Pelvis Other: unremarkable Skin General skin exam: no rashes or lesions noted Neuro General: patient oriented x3 Extrem General: Yes normal to inspection Psych Mental Status: mental status grossly normal Office Procedures EKG Details: EKG with sinus bradycardia at 51/Min; premature atrial contractions; leftward axis; left ventricular hypertrophy; [place] [id number], Complete Assessment & Plan Assessment & Plan (1) Stress-induced cardiomyopathy: Code(s): I51.81 - Takotsubo syndrome Category: Medical Plan: Cardiac catheterization in the past with no significant CAD. In the most recent echocardiogram, LVEF 60-65%. Continue Coreg. Due to cough from lisinopril, she is on losartan. (2) Hypertension, essential: Code(s): I10 - Essential (primary) hypertension Category: Medical Plan: On carvedilol and losartan. Blood pressure is slightly high. She states when the nurse checks the blood pressure at a place she works, it is much lower. Advised to keep following it up. Based on the readings, may need med changes. (3) Ascending aorta dilatation: Code(s): I77.810 - Thoracic aortic ectasia Category: Medical Plan: In the echocardiogram, ascending aortic size 4.1 cm. Mild aortic regurgitation. Recheck in 1 year. Per study in 2020, ascending aortic size 3.8 cm. Orders: Orders CA Echo Limited Today I77.810 - Thoracic aortic ectasia Coding Level of Care Code Est Pt Level 4 (05961) Diagnoses Stress-induced cardiomyopathy I51.81 Hypertension, essential I10 Ascending aorta dilatation I77.810 CPT Codes EKG - CPT: 03205-[id number], Complete ([id number])
== END 2024-04-15 09:25 | disposition home or self-care (01) ==
PROVIDERS: PCP Internal Medicine; Visit Provider Internal Medicine
DX: I51.81 Takotsubo syndrome (principal); I10 Essential (primary) hypertension; I77.810 Thoracic aortic ectasia
CPT/HCPCS: 93010; 99214

== ENCOUNTER → 2024-04-15 08:53 | Outpatient (BNVA) | payer OTHER, MEDICAID, SELFPAY | PROVIDERS: PCP Internal Medicine; Visit Provider Internal Medicine | DX: I51.81 Takotsubo syndrome (principal); I77.810 Thoracic aortic ectasia; I10 Essential (primary) hypertension | CPT/HCPCS: 93005; 99212 ==

== ENCOUNTER 2024-08-07 07:39 | Outpatient (REF) | payer MEDICARE, MEDICAID, SELFPAY | END 2024-08-07 07:40 | disposition home or self-care (01) | LOC: HO.MAMMO 07:39 | PROVIDERS: Visit Provider Internal Medicine | DX: Z12.31 Encounter for screening mammogram for malignant neoplasm of breast (principal) | CPT/HCPCS: 77063; 77067 ==

== ENCOUNTER → 2024-08-07 07:45 | Outpatient (BNV) | payer MEDICARE, MEDICAID, SELFPAY | PROVIDERS: Visit Provider Internal Medicine | DX: Z12.31 Encounter for screening mammogram for malignant neoplasm of breast (principal) | CPT/HCPCS: 77063; 77067 ==

== ENCOUNTER 2024-11-29 11:55 | Outpatient (AMB) | payer MEDICARE, MEDICAID, SELFPAY ==
[2024-11-29 11:57] VITALS: BP 120/84; PULSE 63; RESP 18; TEMP 36.3; O2SAT 98; BMI 32.8
--- NOTE | 2024-11-29 11:57 | A.OFFVIS_ITS ---
Intake Vital Signs 11/29/24 11:57 Height 5 ft 4 in Weight 191 lb BMI 32.8 BP 120/84 Blood Pressure Location Lt brachial Position Sitting Respiration 18 Pulse 63 Pulse Source Pulse Oximeter Temp 97.3 F Temp Source Oral Pulse Oximetry (%) 98 Oxygen Delivery Method Room Air Intake Visit Reasons: AWV G0438 Allergies lisinopril (LISINOPRIL) Allergy (Unknown, Verified 11/29/24 12:01) Cough Sulfa (Sulfonamide Antibiotics) Allergy (Unknown, Verified 11/29/24 12:01) Unknown propoxyphene (From Darvocet-N) Allergy (Verified 11/29/24 12:01) tachycardia cephalexin (Keflex) Adverse Reaction (Unknown, Verified 11/29/24 12:01) Nausea and Vomiting Medication List - Last Reconciled 11/29/24 by Jesus Alberto Piedra MD aspirin 81 mg PO DAILY atorvastatin 20 mg PO DAILY carvedilol 6.25 mg PO BID losartan 25 mg PO DAILY omeprazole 20 mg PO BID HPI AWV G0438 HPI Details Chief Complaint Patient presents for annual Medicare wellness visit and omeprazole refill. History of Present Illness The patient is a 79 year old female presenting with an annual Medicare wellness visit and postnasal drip. Postnasal drip and sinus congestion: - has allergies but taking no medication - The patient reports a persistent issue with postnasal drip and sinus problems. - Symptoms have been ongoing and consist ent with a sensation of sinus congestion and postnasal drip. - She experiences throat scratchiness an d associated nasal symptoms. - No specific treatment is currently use d for these symptoms. 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 - Reports feeling busy and not wanting t o retire yet. - Daughter suggests [employer] activi ties, patient does not consider herself old. - Regular swimming activity mentioned. Family History: - Grandson diagnosed with diabetes. Diagnostic Results: - Mammogram completed in August of the ent year. - Bone density last checked in 2020; due for an update. Problem List - Gastroesophageal reflux disease - Allergic rhinitis - Osteoarthritis - Skin fragility - Postnasal drip - lipid disorder - stress cardiomyopathy with diastolic d ysfunction treated by echo vascular tech along with hypertension Patient Instructions - Consider taking Zyrtec without the ?D? for allergy relief. - Consult dermatology for skin checks du e to bruising and sun exposure concern. - continue omeprazole for GERD symptoms - follow-up with Cardiology for medicati on refills - follow-up 1 year Medicare wellness Review of Systems - General: No fever no chills - Neurological: No headaches no dizziness - Ear nose throat: No sore throat no hearing difficulty no ear pain - Cardiovascular: No syncope, no chest pain, no palpitations - Gastrointestinal: No nausea vomiting or diarrhea - Endocrine: No polyuria polydipsia no heat intolerance - Genitourinary: No dysuria , no blood in urine Physical Exam General: No acute distress HEENT: Postnasal drip, sinus issues, ear is itchy but no infection Neck: Supple Respiratory system: Able to talk in full sentences, no audible wheeze Cardiovascular: S1-S2 regular in rate and rhythm Gastrointestinal: No pain Extremities: Bad knees and shoulders, bruising due to fragile skin and varicose veins WATERPROOFING MIXER: Alert awake oriented x3, gait stable Skin: Normal turgor, bruising noted due to fragile skin and varicose veins Able to get up from chair without holding onto anything, balance intact tandem failed Hearing intact HPI Comments History of Present Illness Details AWV Medical/social history reviewed Past medical history reviewed Rinard of care / care team list updated Surgical/ hospitalization history reviewed Current medications including OTC and supplements reviewed Family history reviewed Tobacco controlled form updated Alcohol use form updated Illicit drug use in social history reviewed Current diagnosis of depression ?screening updated Appropriate PHQ 2/PHQ-9 completed . Vital signs reviewed Alcohol tobacco drug use reviewed and discussed . MMSE completed . ? Fall risk: ?Assessed Fall history: ?None Have you had any falls with injury in the past year?? No Have you had 2 or more falls in the past year?? No Fall risk assessment completed Home safety discussed with the patient Functional ability assessed and discussed and documented Activities of daily living reviewed and appropriate actions taken . HRA filled out by the patient and reviewed by provider and scanned . Appropriate written screening schedule established . Any health advise needed provided . Advance care planning discussed with the patient , necessary paperwork filled Examination IPPE/AWE: Balance intact Romberg intact Tandem walk failed walk-in turn intact rise from sit to stand intact . ?Hearing ?whisper test pass . Medication list reviewed, patient is stable on medications All other providers patient is seeing discussed and noted . [facility] Medical History Sinus bradycardia Diastolic dysfunction Stress-induced cardiomyopathy Dyspepsia Hypertension, essential Lipid disorder Angina pectoris Varicose veins of anus or rectum Ankle fracture, right Upper GI bleed Surgical History History of cardiac catheterization (~01/2015) Displaced comminuted fracture of shaft of right tibia, subsequent encounter for open fracture type IIIA, IIIB, or IIIC with routine healing (2009) Hx of arthroscopy of right knee (2009) Family History Father Diabetes HTN (hypertension) Mother Diabetes HTN (hypertension) Unknown Diabetes HTN (hypertension) Brother Lymphoma Social History Housing: House Alcohol intake: never Patient Tobacco Use Status: Never used Tobacco e-Cigarette/Vaping Use: Never Used service: No Current occupational status: employed Cognitive needs: No Hearing needs: No Vision needs: No Questionnaire Medicare Wellness Checkup [age] What gender do you identify with?: female During the past 4 weeks, how much have you been bothered by emotional problems such as feeling anxious, depressed, irritable, sad or downhearted, and blue?: slightly During the past 4 weeks, has your physical & emotional health limited your social activities with family, friends, neighbors, or groups?: not at all During the past 4 weeks, how much bodily pain have you generally had?: moderate pain During the past 4 weeks, was someone available to help you if you needed & wanted help?: yes, as much as I wanted During the past 4 weeks, what was the hardest physical activity you could do for at least 2 minutes?: heavy Can you get to places out of walking distance without help? (For eg., can you travel alone on buses, taxis or drive your car?): Yes Can you go shopping for groceries or clothes without someone's help?: Yes Can you prepare your own meals?: Yes Can you do your housework without help?: Yes Because of any health problems, do you need the help of another person with your personal care needs such as eating, bathing, dressing or getting around the house?: No Can you handle your own money without help?: Yes During the past 4 weeks, how would you rate your health in general?: good During the past 4 weeks how have things been going for you?: pretty well Are you having difficulties driving your car?: no Do you always fasten your seat belt when you are in a car?: yes, usually During past 4 weeks, have you been bothered by the following: never: Falling or dizzy when standing up, Sexual problems?, Trouble eating well?, Teeth or denture problems?, Problems using the telephone? and Tiredness or fatigue? Have you fallen 2 or more times in the past year?: No Are you afraid of falling?: No Are you a smoker?: no During the past 4 weeks, how many drinks of wine, beer, or other alcoholic beverages did you have?: no alcohol at all Do you exercise for about 20 minutes 3 or more times a week?: yes, some of the time Have you been given information to help with the following?: yes: Keeping track of your medications? and no: Hazards in your house that might hurt you? How often do you have trouble taking medicines the way you have been told to take them?: I always take medicine as prescribed How confident are you that you can control & manage most of your health problems?: very confident What is your race?: White Mini Mental State Exam (MMSE) Orientation What is the (year) (season) (date) (day) (month)?: year, season, date, day and month Where are we (state) (county) (town or city) (hospital) (floor)?: state, county, town or city, hospital/clinic and floor Score Score: 10 Activity of Daily Living Bathing - sponge bath, tub bath or shower: receives no assistance (gets in/out by self, if usual bathing means Dressing - getting clothes from closets & drawers, including inner/outer garments & fasteners.: gets clothes & gets completely dressed without help Toileting - going to the 'toilet room' for urine/bowel elimination & cleaning self/arranging clothes: goes to toilet room, cleans self, arranges clothes without help Transfer: moves in & out of bed and chair without help (may use support object) Continence: controls urination/bowel movements completely by self Feeding: feeds self without help Total Score: 0 Information obtained from: patient Using telephone: independent Traveling: independent Shopping: independent Preparing meals: independent Housework: independent Taking medicine: independent Managing money: independent PHQ-9 Over the last 2 weeks, how often have you been bothered by any of the following problems? 1. Little interest or pleasure in doing things: not at all 2. Feeling down, depressed, or hopeless: not at all 3. Trouble falling or staying asleep, or sleeping too much: not at all 4. Feeling tired or having little energy: not at all 5. Poor appetite or overeating: not at all 6. Feeling bad about yourself - or that you are a failure or have let yourself or your family down: not at all 7. Trouble concentrating on things, such as reading the newspaper or watching television: not at all 8. Moving or speaking so slowly that other people could have noticed. Or the opposite - being so fidgety or restless that you have been moving around a lot more than usual: not at all 9. Thoughts that you would be better off or of hurting yourself in some way: not at all Total score: 0 Depression Screening Interpretation: Negative Depression Screening Done: Yes 61025 - PHQ-9 Billing: Yes Source: Developed by Drs. Chinmay Elizondo, Tabitha Rossi, Tylor Up and colleagues, with an educational arminda from [email or web address]. Physical Exam Vital Signs: BMI result Body Mass Index 32.8 Assessment & Plan Assessment & Plan (1) Medicare annual wellness visit, subsequent: Code(s): Z00.00 - Encounter for general adult medical examination without abnormal findings (2) Menopause: Code(s): Z78.0 - Asymptomatic menopausal state (3) Skin cancer screening: Code(s): Z12.83 - Encounter for screening for malignant neoplasm of skin (4) Chronic GERD: Code(s): K21.9 - Gastro-esophageal reflux disease without esophagitis (5) Lipid disorder: Code(s): E78.9 - Disorder of lipoprotein metabolism, unspecified (6) Ascending aorta dilatation: Code(s): I77.810 - Thoracic aortic ectasia (7) Diastolic dysfunction: Code(s): I51.89 - Other ill-defined heart diseases (8) Stress-induced cardiomyopathy: Code(s): I51.81 - Takotsubo syndrome (9) Hypertension, essential: Code(s): I10 - Essential (primary) hypertension Plan Chief Complaint Patient presents for annual Medicare wellness visit and omeprazole refill. History of Present Illness The patient is a 79 year old female presenting with an annual Medicare wellness visit and postnasal drip. Postnasal drip and sinus congestion: - has allergies but taking no medication - The patient reports a persistent issue with postnasal drip and sinus problems. - Symptoms have been ongoing and consistent with a sensation of sinus congestion and postnasal drip. - She experiences throat scratchiness and associated nasal symptoms. - No specific treatment is currently used for these symptoms. 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 - Reports feeling busy and not wanting to retire yet. - Daughter suggests senior center activities, patient does not consider herself old. - Regular swimming activity mentioned. Family History: - Grandson diagnosed with diabetes. Diagnostic Results: - Mammogram completed in August of the current year. - Bone density last checked in 2020; due for an update. Problem List - Gastroesophageal reflux disease - Allergic rhinitis - Osteoarthritis - Skin fragility - Postnasal drip - lipid disorder - stress cardiomyopathy with diastolic dysfunction treated by echo vascular tech along with hypertension Patient Instructions - Consider taking Zyrtec without the ?D? for allergy relief. - Consult dermatology for skin checks due to bruising and sun exposure concern. - continue omeprazole for GERD symptoms - follow-up with Cardiology for medication refills - follow-up 1 year Medicare wellness Orders: Orders XR DEXA axial skeleton Today Z78.0 - Asymptomatic menopausal state Referrals Dermatology Referral Z12.83 - Encounter for screening for malignant neoplasm of skin Medications: Refilled omeprazole 20 mg PO BID 180 caps 3RF Quality Reporting (2019) Depression/Bipolar (159/160/161/177) PHQ-9: Total score: 0 Coding Level of Care Code Medicare Subsequent (G0439) Est Pt Level 3 (99873) Diagnoses Medicare annual wellness visit, subsequent Z00.00 Menopause Z78.0 Skin cancer screening Z12.83 Chronic GERD K21.9 Lipid disorder E78.9 Ascending aorta dilatation I77.810 Diastolic dysfunction I51.89 Stress-induced cardiomyopathy I51.81 Hypertension, essential I10 CPT Codes Advance Care Planning - Advance Care Planning discussion: On file, no changes ([id number]) Advance Care Planning - Time spent: 1-15 minutes, on File ([id number]) Additional Codes PHQ-9 - 27165 - PHQ-9 Billing: Yes ([id number]) Advance Care Planning Advance Care Planning discussion: On file, no changes Forms completed: [facility] Time spent: 1-15 minutes, on File
--- OUTSIDE RECORDS SUMMARY | 2024-11-29 12:48 | XMS_ITS | Clinical Summary ---
Author Organization [employer] Address [address] [place] [address] [address] [place] [address] Care Team Providers Care Milk Receiver Name Role Phone Unavailable Primary Care Provider Unavailabl e Immunizations Immunization Administration Dates Next Due Pfizer Covid-19 Vaccine 12+ 09/13/2021,1 ,05/07/2020,2020 Pfizer Covid-19 Vaccine 12+ Bivalent 06/02/2022 Social History Tobacco Use Types Packs/Day Years Used Date Smoking Tobacco: Never Assessed Comments Unknown Sex and Gender Information Value Date Recorded Sex Assigned at Female 06/02/2022 11:10 AM EST Legal Sex Female 11:05 AM EST Gender Identity Female 06/02/2022 11:10 AM EST Sexual Orientation Straight 06/02/2022 11 :10 AM EST Plan of Treatment Health Maintenance Due Date Last Done Comments Depression Screening 1945 SDOH Screening 1945 Alcohol/Substance Use Screening 1959 Tobacco Screening 1959 Hepatitis C Screening 10/02/1965 DTaP/Tdap/Td Vaccines (1 - Tdap) 10/02/1966 Pneumococcal Vaccine: 50+ Years (1 of 1 - PCV) 10/02/1997 Zoster Vaccines (1 of 2) 10/02/1997 RSV Patients and Patients Aged 60 years or older (1 - 1-dose 75+ series) 10/02/2022 COVID-19 Vaccine ( season) 2023 06/02/2022, 09/13/2021, 01/11/2021, Additional history exists Influenza Vaccine (#1) 2024 HIB Vaccines Aged Out No longer eligi ble based on patient's age to complete this topic HPV Vaccines Aged Out No longer eligi ble based on patient's age to complete this topic Hepatitis A Vaccines Aged Out No long er eligible based on patient's age to complete this topic Hepatitis B Vaccines Aged Out No long er eligible based on patient's age to complete this topic IPV Vaccines Aged Out No longer eligi ble based on patient's age to complete this topic Meningococcal B Vaccine Aged Out No l onger eligible based on patient's age to complete this topic Meningococcal Vaccine Aged Out No darrel haritha eligible based on patient's age to complete this topic RSV under 20 months Aged Out No longe r eligible based on patient's age to complete this topic Rotavirus Vaccines Aged Out No longer eligible based on patient's age to complete this topic [facility] [place] [id number] Advance Directives Documents on File Type Date Recorded 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
== END 2024-11-29 12:57 | disposition home or self-care (01) ==
PROVIDERS: PCP Internal Medicine; Visit Provider Internal Medicine
DX: Z00.00 Encounter for general adult medical examination without abnormal findings (principal); K21.9 Gastro-esophageal reflux disease without esophagitis; I77.810 Thoracic aortic ectasia; I51.89 Other ill-defined heart diseases; Z78.0 Asymptomatic menopausal state; Z12.83 Encounter for screening for malignant neoplasm of skin; E78.9 Disorder of lipoprotein metabolism, unspecified; I51.81 Takotsubo syndrome; I10 Essential (primary) hypertension

== ENCOUNTER → 2024-11-29 11:55 | Outpatient (BNVA) | payer MEDICARE, SELFPAY | PROVIDERS: PCP Internal Medicine; Visit Provider Internal Medicine | DX: Z00.00 Encounter for general adult medical examination without abnormal findings (principal); R09.82 Postnasal drip; K21.9 Gastro-esophageal reflux disease without esophagitis; E78.9 Disorder of lipoprotein metabolism, unspecified; I77.810 Thoracic aortic ectasia; I51.89 Other ill-defined heart diseases; I51.81 Takotsubo syndrome; I10 Essential (primary) hypertension; Z78.0 Asymptomatic menopausal state; Z79.899 Other long term (current) drug therapy | CPT/HCPCS: 96127 ==

== ENCOUNTER → 2024-12-20 10:00 | Outpatient (BNV) | payer MEDICARE, MEDICAID, SELFPAY | PROVIDERS: PCP Internal Medicine; Visit Provider Radiology Diagnostic Radiology | DX: E28.39 Other primary ovarian failure (principal) | CPT/HCPCS: 77080 ==

== ENCOUNTER 2024-12-20 10:54 | Outpatient (REF) | payer MEDICARE, MEDICAID, SELFPAY ==
--- NOTE | ~2024-12-20 | MM_ITS ---
EXAMINATION: DXA BONE DENSITY AXIAL HISTORY: Z78.0 - Asymptomatic menopausal state TECHNIQUE: [facility] Dual energy absorptiometry (DEXA) of the lumbar spine, total left hip, and femoral neck was performed. COMPARISON: Comparison is made with the prior examination dated 06/09/2020. FINDINGS: The bone mineral density of the lumbar spine is 1.074 g/cm2, corresponding to a T-score of -0.9, and a Z-score of 0.2. This is indicative of normal bone mineral density. This represents a BMD change of -7.3% compared to the prior exam. This is statistically significant. The bone mineral density of the left total hip is 0.711 g/cm2, corresponding to a T-score of -2.4, and a Z-score of -1.0. This is indicative of osteopenia. This represents a BMD change of -11.6% compared to the prior exam. This is statistically significant. The bone mineral density of the left femoral neck is 0.713 g/cm2, corresponding to a T-score of -2.3, and a Z-score of -0.8. This is indicative of osteopenia. This represents a BMD change of -0.4% compared to the prior exam. FRACTURE RISK: The FRAX index suggests a ten year probability of major osteoporotic fracture of 22.9%, and of hip fracture 6.5%. MM/XR DEXA axial skeleton IMPRESSION: Based on bone mineral density, and according to World Health Organization (WHO) criteria, the diagnosis is consistent with osteopenia. Statistically, 68% of repeat scans fall within 1 SD (+/- 0.010 g/cm2 for AP spine L1-L4) and 1 SD (+/- 0.012 g/cm2 for femur total) FRAX is a trademark of the [employer] [place] [facility] Metabolic Bone Disease, a World Health Organization (WHO) Collaborating Center. Electronically signed by: Chinmay Cornell MD 12/20/2024 11:32 AM EDT
--- OUTSIDE RECORDS SUMMARY | 2024-12-20 11:34 | XMS_ITS | Clinical Summary ---
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
== END 2024-12-20 10:55 | disposition home or self-care (01) ==
LOC: HO.MAMMO 10:54
PROVIDERS: PCP Internal Medicine; Visit Provider Internal Medicine
DX: Z13.820 Encounter for screening for osteoporosis (principal); Z78.0 Asymptomatic menopausal state
CPT/HCPCS: 77080